=== PATIENT | male | born 1940 | race Caucasian/White ===

== ENCOUNTER 2016-06-15 22:13 | Observation (INO) | payer OTHER, MEDICARE ==
[~2016-06-15] VITALS: Ht 172.7 cm; Wt 91.6 kg
[~2016-06-15 22:13] MED LIST: ACCUPRIL20 MG PO; ADVAIR 250-501 EACH IH; ADVAIR 250/501 DISK IH; ADVAIR HFA120 INHALA IH; ALBUTEROL2.5 MG/3 M IH; ALLERCLEAR D-21 EACH PO; ALLERGY RELIEF10 M1 PO; ALLOPURINOL100 MG PO; APRESOLINE100 MG PO; ASPIR 8181 M1 PO; Advair HFA 115/21 IH; Apresolin PO; B COMPLEX-VITA1 EACH PO; BENADRYL50 MG PO; BYSTOLIC10 MG PO; BYSTOLIC20 MG PO; CALCIUM 600 +1 EAC3 PO; CALCIUM ACETAT667 MG PO; CALCIUM300 MG PO; CALCIUM600 MG PO; CARDURA1 M1 PO; CARDURA2 M1 PO; CARDURA4 MG PO; CATAPRES0.2 MG PO; CENTRUM SILV1 TABLE1 PO; CENTRUM SILVER1 EAC1 PO; CENTRUM SILVER1 EAC3; CENTRUM SILVER1 EAC3 PO; CIPRO250 MG PO; CLONIDINE HCL0.1 MG PO; CLONIDINE HCL0.2 MG PO; COREG25 M1 PO; COZAAR100 MG PO; CREON 61 CAPSULE PO; CREON DR 12,001 EAC1 PO; CREON DR 36,001 EACH PO; Cardura PO; Claritin,Alavart PO; Coreg PO; Cozaar PO; DIALYVITE 3,001 EACH PO; DIALYVITE TABL1 EACH PO; DILAUDID1 MG/ML IV; DOCUSATE SODIU100 MG PO; Dextrose 10% in Wate IV; Dextrose 50% in Wate IV; FISH OIL 1,0001 EAC7 PO; FISH OIL CONC1 EACH PO; FUROSEMIDE PO; FUROSEMIDE80 MG PO; Fish Oil PO; Flonase BOTH NARES; HUMULIN 70100 UNIT/1 SQ; HUMULIN N100 UNIT/1 SQ; HUMULIN N100 UNITS/ SC; HUMULIN N100 UNITS/ SQ; HUMULIN NP100 UNIT/1 SC; HUMULIN R100 UNITS/ SC; HYDRALAZINE HCL25 MG PO; HYDRALAZINE HCL50 MG PO; IRON325 M1 PO; JANTOVEN5 MG PO; LASIX20 MG PO; LASIX40 MG PO; LEVAQUIN500 MG PO; LIPO-FLAVONO1 TABLET PO; LO-DOSE ASPIRIN81 M2 PO; LONITEN2.5 MG PO; LORATADINE10 M2 PO; Lasix PO; Levaquin PO; Lovenox SC; MINOXIDIL2.5 MG PO; MONOPRIL20 MG PO; NASACORT AQ16.5 GM BOTH NARES; NASACORT AQ16.5 GM NS; NASACORT10.8 ML BOTH NARES; NOVOLIN N100 UNIT/1 SQ; NOVOLIN N100 UNITS/ SC; NOVOLOG 10100 UNITS/ SC; NOVOLOG 10100 UNITS/ SQ; NOVOLOG PE100 UNITS/ SC; NOVOLOG100 UNIT/2 SQ; OMEGA III EPA1000 MG PO; Ocean Nasal 0.65% NS; Omega III EPA + DHA PO; PROTONIX40 MG PO; PROVENTIL,2.5 MG/0.5 IH; PROVENTIL,2.5 MG/3 M IH; Protonix PO; RENVELA800 MG PO; SIMVASTATIN20 MG PO; SIMVASTATIN40 MG PO; SIMVASTATIN80 M1 PO; SPIRIVA1 INHALATI IH; SUPER B COMP1 TABLET PO; SYNTHROID100 MCG PO; SYNTHROID75 MCG PO; SYNTHROID88 MCG PO; TUMS ULTRA1000 MG PO; TUMS500 MG PO; TYLENOL ARTHRI650 MG PO; TYLENOL REGULA325 MG PO; Theragran PO; Tums,OsCal PO; VITAMIN B-121500 MCG PO; VITAMIN B-125000 MC1 PO; VITAMIN B12-FO1 EACH PO; VITAMIN C1000 MG PO; VITAMIN D-32000 UNIT PO; VITAMIN D1000 INTUN PO; VITAMIN D2000 UNIT PO; VITAMIN D31000 UNI1; VITAMIN D32000 UNI1 PO; VITAMIN D34000 UNIT PO; Vitamin D PO; XIFAXAN550 MG PO; ZITHROMAX Z-PA250 MG PO; ZOCOR40 MG PO; ZYLOPRIM100 MG PO; Zocor PO; Zofran IV; Zyloprim PO; [UNRECOGNIZED DRUG - OTHER] IV; predniSONE PO
[2016-06-15 22:55] LABS: HEMATOCRIT 29.5 % (38.0-50.0); MCH 32.9 PG (29.0-34.0); MCHC 32.5 G/DL (30.0-36.0); PLATELET COUNT 153 K/uL (156-360); RBC DIS.WIDTH-CV 13.7 % (11.8-14.6); RBC DIS.WIDTH-SD 50.9 % (39-53); RED BLOOD COUNT 2.92 M/uL (4.00-5.50); WHITE BLOOD COUNT 9.9 K/uL (4.1-10.2)
[2016-06-15 23:03] LABS: CHLORIDE 99 mEq/L (99-109); POTASSIUM 5.1 mEq/L (3.7-5.4); SODIUM 140 mEq/L (136-147)
[2016-06-15 23:05] LABS: CARBON DIOXIDE (BICARBONATE) 28.6 MEQ/L (20-31); GLUCOSE 99 mg/dL (70-99)
[2016-06-15 23:07] LABS: ANION GAP 16 MEQ/L (2-14)
[2016-06-15 23:09] LABS: GFR ESTIMATE (CALCULATED) 7 mL/min/
[2016-06-15 23:10] LABS: UREA NITROGEN (BUN) 74 mg/dL (9-23)
[2016-06-15 23:16] LABS: TROP-I INTERPRETATION NEGATIVE; TROPONIN-I 0.11 ng/mL (0.0-0.30)
[2016-06-16] MEDS ORDERED: HUMULIN N100 UNITS/ SC (00:48)
[2016-06-16 05:57] LABS: TROP-I INTERPRETATION NEGATIVE; TROPONIN-I 0.11 ng/mL (0.0-0.30)
[2016-06-16 07:40] VITALS: BP 146/78
[2016-06-16 08:27] LABS: CHLORIDE 98 mEq/L (99-109); POTASSIUM 5.8 mEq/L (3.7-5.4); SODIUM 137 mEq/L (136-147)
[2016-06-16 08:31] LABS: ANION GAP 17 MEQ/L (2-14)
[2016-06-16 08:33] LABS: GFR ESTIMATE (CALCULATED) 7 mL/min/
[2016-06-16 08:34] LABS: GLUCOSE 297 mg/dL (70-99); UREA NITROGEN (BUN) 86 mg/dL (9-23)
[2016-06-16 10:19] LABS: EOSINOPHIL (%) 0 % (0-5); HEMATOCRIT 26.2 % (38.0-50.0); IMMATURE GRANULOCYTE (%) 0.6 % (0.0-0.7); INSTRUMENT ABS NEUTROPHIL CT 5.9 K/uL; LYMPHOCYTE COUNT 0.3 K/uL (1.0-2.8); MCH 33.1 PG (29.0-34.0); MCHC 32.4 G/DL (30.0-36.0); MCV 101.9 FL (86-99); MEAN PLAT.VOLUME 10.8 uM^3 (9.0-12.4); MONOCYTE (%) 1.4 % (3-12); MONOCYTE COUNT 0.1 K/uL (0-0.8); NEUTROPHIL (%) 92.9 % (45-76); NEUTROPHIL COUNT 5.9 K/uL (1.8-6.4); PLATELET COUNT 128 K/uL (156-360); RBC DIS.WIDTH-CV 14.1 % (11.8-14.6); RBC DIS.WIDTH-SD 51.8 % (39-53); RED BLOOD COUNT 2.57 M/uL (4.00-5.50)
[2016-06-16 10:20] LABS: WHITE BLOOD COUNT 6.3 K/uL (4.1-10.2)
[2016-06-16 13:08] LABS: TROP-I INTERPRETATION NEGATIVE; TROPONIN-I 0.08 ng/mL (0.0-0.30)
[2016-06-16 15:49] VITALS: BP 121/59
[2016-06-16 15:49] LABS: ANION GAP 14 MEQ/L (2-14); CHLORIDE 99 MEQ/L (99-109); SAMPLE HEMOLYSIS CHECK 0; SAMPLE ICTERIC CHECK 0; SAMPLE LIPEMIA CHECK 0; SODIUM 140 MEQ/L (136-147)
[2016-06-16 15:53] LABS: POTASSIUM 3.9 MEQ/L (3.7-5.4)
[2016-06-16 15:55] LABS: GFR ESTIMATE (CALCULATED) 17 mL/min/; GLUCOSE 157 mg/dL (70-99); UREA NITROGEN (BUN) 35 mg/dL (9-23)
[2016-06-16 19:40] VITALS: BP 131/63
[2016-06-16 23:44] VITALS: BP 135/60
[2016-06-17 06:42] LABS: HEMATOCRIT 26.7 % (38.0-50.0); MCH 32.6 PG (29.0-34.0); MCHC 31.8 G/DL (30.0-36.0); MCV 102.3 FL (86-99); MEAN PLAT.VOLUME 10.2 uM^3 (9.0-12.4); PLATELET COUNT 125 K/uL (156-360); RBC DIS.WIDTH-CV 13.9 % (11.8-14.6); RBC DIS.WIDTH-SD 52.5 % (39-53); RED BLOOD COUNT 2.61 M/uL (4.00-5.50); WHITE BLOOD COUNT 6.9 K/uL (4.1-10.2)
[2016-06-17 07:04] LABS: ANION GAP 13 MEQ/L (2-14); CHLORIDE 97 MEQ/L (99-109); GFR ESTIMATE (CALCULATED) 12 mL/min/; GLUCOSE 42 mg/dL (70-99); POTASSIUM 4.3 MEQ/L (3.7-5.4); SAMPLE HEMOLYSIS CHECK 0; SAMPLE ICTERIC CHECK 0; SAMPLE LIPEMIA CHECK 0; SODIUM 139 MEQ/L (136-147); UREA NITROGEN (BUN) 43 mg/dL (9-23)
[2016-06-17 07:34] VITALS: BP 123/61
[2016-06-17 11:07] VITALS: BP 132/64
== END 2016-06-17 12:28 | disposition home or self-care (01) ==
LOC: EME → EDBD 22:13 → EME 22:13 → EDOF 06-16 02:10 → 5SOUTH 06-16 02:10 → EDOF 06-16 02:10 → 5SOUTH 06-16 02:11 → EDOF 06-16 02:11 → 5SOUTH 06-16 06:57
PROVIDERS: Emergency Medicine; Hospitalist; Internal Medicine; Internal Medicine Nephrology
PROC: 5A1D00Z (ICD-10-PCS; principal; 2016-06-16)
DX: E87.70 Fluid overload, unspecified (principal); I13.2 Hypertensive heart and chronic kidney disease with heart failure and with stage 5 chronic kidney disease, or end stage renal disease; N18.6 End stage renal disease; I50.9 Heart failure, unspecified; J44.9 Chronic obstructive pulmonary disease, unspecified; J96.11 Chronic respiratory failure with hypoxia; E87.5 Hyperkalemia; E83.39 Other disorders of phosphorus metabolism; E11.9 Type 2 diabetes mellitus without complications; G47.33 Obstructive sleep apnea (adult) (pediatric); E78.5 Hyperlipidemia, unspecified; E03.9 Hypothyroidism, unspecified; Z99.81 Dependence on supplemental oxygen; Z99.2 Dependence on renal dialysis; Z79.4 Long term (current) use of insulin; Z85.828 Personal history of other malignant neoplasm of skin; Z87.891 Personal history of nicotine dependence
CPT/HCPCS: 71010; 71020; 71250; 80048; 80048 91; 80069; 81003; 82803; 82948; 83605; 83880; 84484; 85025; 85027; 87040; 87070; 87205; 87449; 93005; 94640; 94640 76; 94799; 99202; 99281; 99284; G0257; G0378; J1100; J1644; J1815; J1940; J1956; J2270; J2405; S0030

== ENCOUNTER 2016-06-25 19:07 | Emergency (ER) | payer OTHER, MEDICARE ==
[~2016-06-25] VITALS: Ht 172.7 cm; Wt 85.0 kg
[2016-06-25 19:30] LABS: HEMATOCRIT 27.7 % (38.0-50.0); MCH 32.9 PG (29.0-34.0); MCHC 32.9 G/DL (30.0-36.0); MEAN PLAT.VOLUME 9.3 uM^3 (9.0-12.4); PLATELET COUNT 125 K/uL (156-360); RBC DIS.WIDTH-CV 14.3 % (11.8-14.6); RBC DIS.WIDTH-SD 51.8 % (39-53); RED BLOOD COUNT 2.77 M/uL (4.00-5.50); WHITE BLOOD COUNT 5.7 K/uL (4.1-10.2)
[2016-06-25 19:50] LABS: CHLORIDE 96 mEq/L (99-109); POTASSIUM 3.2 mEq/L (3.7-5.4); SODIUM 138 mEq/L (136-147)
[2016-06-25 19:51] LABS: GLUCOSE 189 mg/dL (70-99)
[2016-06-25 19:53] LABS: ANION GAP 15 MEQ/L (2-14)
[2016-06-25 19:55] LABS: GFR ESTIMATE (CALCULATED) 14 mL/min/
[2016-06-25 19:56] LABS: TROP-I INTERPRETATION NEGATIVE; TROPONIN-I 0.15 ng/mL (0.0-0.30); UREA NITROGEN (BUN) 19 mg/dL (9-23)
[2016-06-25 22:21] VITALS: BP 106/51
== END 2016-06-25 22:22 | disposition home or self-care (01) ==
LOC: EME → EDBD 19:07 → EME 19:07
DX: E86.0 Dehydration (principal); I12.9 Hypertensive chronic kidney disease with stage 1 through stage 4 chronic kidney disease, or unspecified chronic kidney disease; N18.9 Chronic kidney disease, unspecified; Z99.81 Dependence on supplemental oxygen; Z95.810 Presence of automatic (implantable) cardiac defibrillator; Z95.0 Presence of cardiac pacemaker; J45.909 Unspecified asthma, uncomplicated; J44.9 Chronic obstructive pulmonary disease, unspecified; I50.9 Heart failure, unspecified; E11.9 Type 2 diabetes mellitus without complications; Z79.4 Long term (current) use of insulin; Z79.82 Long term (current) use of aspirin; Z80.0 Family history of malignant neoplasm of digestive organs; Z88.8 Allergy status to other drugs, medicaments and biological substances; Z91.048 Other nonmedicinal substance allergy status; Z87.891 Personal history of nicotine dependence
CPT/HCPCS: 71020; 80048; 83605; 84484; 85027; 87040; 93005; 94640; 99281; 99285; J7040

== ENCOUNTER → 2016-06-26 | Outpatient (CLI) | payer OTHER, MEDICARE ==
[~2016-06-26] MED LIST changes: +LEVO-T88 MCG PO
[2016-06-26 09:49] LABS: TYPE OF FLUID PLEURAL
[2016-06-26 10:30] LABS: BODY FLUID EOSINOPHILS 1 % (0-25); MONO RAW COUNT 91; MONONUCLEAR WBC'S 91 %; POLY RAW COUNT 8; POLYNUCLEAR WBC'S 8 % (0-25)
[2016-06-26 10:47] LABS: BODY FLUID LDH 107 IU/L; BODY FLUID PROTEIN 4.1 G/DL; BODY FLUID RBC'S < 1000 /MM^3 (0-100); BODY FLUID WBC'S 204 /MM^3 (0-500)
== END | disposition home or self-care (01) ==
LOC: RAD 08:31 → EDSTATUS 09:00 → RAD 06-27 09:00
PROVIDERS: Radiology Diagnostic Radiology
PROC: 0W993ZZ Drainage of Right Pleural Cavity, Percutaneous Approach (ICD-10-PCS; principal; 2016-06-26)
DX: J90 Pleural effusion, not elsewhere classified (principal)
CPT/HCPCS: 82945; 83615 91; 84157; 87070; 87116; 87205; 87206; 88108; 88305; 89051; J2405

== ENCOUNTER 2016-06-27 17:14 | Inpatient (IN) | payer OTHER, MEDICARE ==
[~2016-06-27] VITALS: Ht 172.7 cm; Wt 85.5 kg
[~2016-06-27 17:14] MED LIST changes: -LEVO-T88 MCG PO
[2016-06-27 17:39] LABS: CHLORIDE 97 mEq/L (99-109); MCH 33.6 PG (29.0-34.0); MCHC 33.3 G/DL (30.0-36.0); MCV 100.7 FL (86-99); MEAN PLAT.VOLUME 10.5 uM^3 (9.0-12.4); PLATELET COUNT 113 K/uL (156-360); RBC DIS.WIDTH-CV 14.4 % (11.8-14.6); RED BLOOD COUNT 2.68 M/uL (4.00-5.50); WHITE BLOOD COUNT 9.6 K/uL (4.1-10.2)
[2016-06-27 17:40] LABS: POTASSIUM 3.7 mEq/L (3.7-5.4); SODIUM 138 mEq/L (136-147)
[2016-06-27 17:41] LABS: GLUCOSE 165 mg/dL (70-99); INTER. NORMALIZED RATIO 1.1; PROTHROMBIN TIME 10.7 (9.2-11.2)
[2016-06-27 17:43] LABS: ANION GAP 17 MEQ/L (2-14)
[2016-06-27 17:45] LABS: GFR ESTIMATE (CALCULATED) 19 mL/min/
[2016-06-27 17:46] LABS: UREA NITROGEN (BUN) 13 mg/dL (9-23)
[2016-06-27 17:52] LABS: TROP-I INTERPRETATION NEGATIVE; TROPONIN-I 0.17 ng/mL (0.0-0.30)
[2016-06-27] MEDS ORDERED: LEVO-T88 MCG PO (19:52)
[2016-06-28] VITALS (7 sets, daily range): BP systolic 113–169; BP diastolic 54–79
[2016-06-28 07:05] LABS: HEMATOCRIT 25.9 % (38.0-50.0); MCH 32.8 PG (29.0-34.0); MCV 102.4 FL (86-99); MEAN PLAT.VOLUME 10.7 uM^3 (9.0-12.4); PLATELET COUNT 113 K/uL (156-360); RBC DIS.WIDTH-CV 14.6 % (11.8-14.6); RED BLOOD COUNT 2.53 M/uL (4.00-5.50); WHITE BLOOD COUNT 11.6 K/uL (4.1-10.2)
[2016-06-28 07:11] LABS: ANION GAP 12 MEQ/L (2-14); CHLORIDE 96 MEQ/L (99-109); GFR ESTIMATE (CALCULATED) 12 mL/min/; GLUCOSE 198 mg/dL (70-99); POTASSIUM 4.4 MEQ/L (3.7-5.4); SAMPLE HEMOLYSIS CHECK 0; SAMPLE ICTERIC CHECK 0; SAMPLE LIPEMIA CHECK 0; SODIUM 137 MEQ/L (136-147)
[2016-06-28 07:14] LABS: UREA NITROGEN (BUN) 24 mg/dL (9-23)
[2016-06-28 10:37] LABS: INFLUENZA A VIRAL ANTIGEN NEGATIVE; INFLUENZA B VIRAL ANTIGEN POSITIVE
[2016-06-28 16:26] LABS: POINT-OF-CARE METER ID UU14162508
[2016-06-29 03:14] VITALS: BP 104/55
[2016-06-29 06:41] LABS: POINT-OF-CARE METER ID UU14162508
[2016-06-29 07:09] LABS: HEMATOCRIT 25.1 % (38.0-50.0); MCH 32.7 PG (29.0-34.0); MCHC 32.3 G/DL (30.0-36.0); MCV 101.2 FL (86-99); MEAN PLAT.VOLUME 11.1 uM^3 (9.0-12.4); PLATELET COUNT 138 K/uL (156-360); RBC DIS.WIDTH-SD 52.2 % (39-53); RED BLOOD COUNT 2.48 M/uL (4.00-5.50); WHITE BLOOD COUNT 14.5 K/uL (4.1-10.2)
[2016-06-29 08:53] LABS: ANION GAP 14 MEQ/L (2-14); CHLORIDE 92 MEQ/L (99-109); GFR ESTIMATE (CALCULATED) 9 mL/min/; GLUCOSE 186 mg/dL (70-99); POTASSIUM 4.5 MEQ/L (3.7-5.4); SAMPLE HEMOLYSIS CHECK 0; SAMPLE ICTERIC CHECK 0; SAMPLE LIPEMIA CHECK 0; SODIUM 132 MEQ/L (136-147)
[2016-06-29 08:56] LABS: UREA NITROGEN (BUN) 49 mg/dL (9-23)
[2016-06-29 19:50] VITALS: BP 140/64
[2016-06-29 23:13] VITALS: BP 115/57
[2016-06-30 03:13] VITALS: BP 113/56
[2016-06-30 07:20] VITALS: BP 105/54
[2016-06-30 08:21] LABS: HEMATOCRIT 24.9 % (38.0-50.0); MCH 32.2 PG (29.0-34.0); MCHC 31.7 G/DL (30.0-36.0); MCV 101.6 FL (86-99); MEAN PLAT.VOLUME 10.9 uM^3 (9.0-12.4); PLATELET COUNT 130 K/uL (156-360); RBC DIS.WIDTH-CV 14.3 % (11.8-14.6); RED BLOOD COUNT 2.45 M/uL (4.00-5.50); WHITE BLOOD COUNT 12.8 K/uL (4.1-10.2)
[2016-06-30 08:52] LABS: ANION GAP 11 MEQ/L (2-14); CHLORIDE 93 MEQ/L (99-109); GFR ESTIMATE (CALCULATED) 13 mL/min/; GLUCOSE 270 mg/dL (70-99); POTASSIUM 4.2 MEQ/L (3.7-5.4); SAMPLE HEMOLYSIS CHECK 0; SAMPLE ICTERIC CHECK 0; SAMPLE LIPEMIA CHECK 0; SODIUM 129 MEQ/L (136-147); UREA NITROGEN (BUN) 36 mg/dL (9-23)
[2016-06-30 11:50] VITALS: BP 107/53
[2016-06-30 16:00] VITALS: BP 118/58
[2016-06-30 19:55] VITALS: BP 103/55
[2016-06-30 23:20] VITALS: BP 98/55
[2016-07-01 03:44] VITALS: BP 104/50
[2016-07-01 06:10] LABS: HEMATOCRIT 23.8 % (38.0-50.0); MCH 33.3 PG (29.0-34.0); MCHC 33.2 G/DL (30.0-36.0); MCV 100.4 FL (86-99); NRBC (%) 0.2 /100 WBC (0-0); PLATELET COUNT 134 K/uL (156-360); RBC DIS.WIDTH-CV 14.1 % (11.8-14.6); RBC DIS.WIDTH-SD 51.3 % (39-53); RED BLOOD COUNT 2.37 M/uL (4.00-5.50); WHITE BLOOD COUNT 14.5 K/uL (4.1-10.2)
[2016-07-01 06:29] LABS: POINT-OF-CARE USER ID 609231305
[2016-07-01 06:36] LABS: ANION GAP 12 MEQ/L (2-14); CHLORIDE 94 MEQ/L (99-109); GFR ESTIMATE (CALCULATED) 9 mL/min/; GLUCOSE 174 mg/dL (70-99); POTASSIUM 4.4 MEQ/L (3.7-5.4); SAMPLE HEMOLYSIS CHECK 0; SAMPLE ICTERIC CHECK 0; SAMPLE LIPEMIA CHECK 0; SODIUM 131 MEQ/L (136-147); UREA NITROGEN (BUN) 54 mg/dL (9-23)
[2016-07-01 07:35] VITALS: BP 103/59
[2016-07-01 12:21] VITALS: BP 112/56
[2016-07-01 15:53] VITALS: BP 119/60
[2016-07-01 18:42] VITALS: BP 105/53
[2016-07-01 22:43] LABS: POINT-OF-CARE METER ID UU14162508
[2016-07-01 23:30] VITALS: BP 103/53
[2016-07-02 04:01] VITALS: BP 105/49
[2016-07-02 07:10] VITALS: BP 109/52
[2016-07-02 07:10] LABS: HEMATOCRIT 24.7 % (38.0-50.0); MCH 32.4 PG (29.0-34.0); MCHC 32.4 G/DL (30.0-36.0); MEAN PLAT.VOLUME 11.2 uM^3 (9.0-12.4); NRBC (%) 0.5 /100 WBC (0-0); PLATELET COUNT 162 K/uL (156-360); RBC DIS.WIDTH-CV 13.8 % (11.8-14.6); RBC DIS.WIDTH-SD 50.5 % (39-53); RED BLOOD COUNT 2.47 M/uL (4.00-5.50); WHITE BLOOD COUNT 15.3 K/uL (4.1-10.2)
[2016-07-02 07:34] LABS: ANION GAP 14 MEQ/L (2-14); CHLORIDE 92 MEQ/L (99-109); GFR ESTIMATE (CALCULATED) 7 mL/min/; GLUCOSE 139 mg/dL (70-99); POTASSIUM 4.7 MEQ/L (3.7-5.4); SAMPLE HEMOLYSIS CHECK 0; SAMPLE ICTERIC CHECK 0; SAMPLE LIPEMIA CHECK 0; SODIUM 129 MEQ/L (136-147); UREA NITROGEN (BUN) 74 mg/dL (9-23)
[2016-07-02] MEDS ORDERED: OSELTAMIVIR PHO30 MG PO (08:24)
[2016-07-02] MEDS ORDERED: PREDNISONE20 MG PO (08:24)
[2016-07-02] MEDS ORDERED: LEVOFLOXACIN500 MG PO (08:24)
[2016-07-02 13:19] LABS: POINT-OF-CARE METER ID UU14162508
== END 2016-07-02 14:50 | disposition home or self-care (01) | DRG 190 ==
LOC: EME 17:14 → EDOF 22:09 → 2EAST 22:24 → EDOF 22:24 → 2EAST 06-28 00:34
PROVIDERS: Emergency Medicine; Hospitalist; Internal Medicine; Nurse Practitioner Family; Student in an Organized Health Care Education/Training Program
PROC: 5A1D60Z (ICD-10-PCS; principal; 2016-06-29)
DX: J44.1 Chronic obstructive pulmonary disease with (acute) exacerbation (principal); N18.6 End stage renal disease; J90 Pleural effusion, not elsewhere classified; Z99.2 Dependence on renal dialysis; Z85.07 Personal history of malignant neoplasm of pancreas; Z99.81 Dependence on supplemental oxygen; K86.1 Other chronic pancreatitis; I13.2 Hypertensive heart and chronic kidney disease with heart failure and with stage 5 chronic kidney disease, or end stage renal disease; I50.32 Chronic diastolic (congestive) heart failure; E11.65 Type 2 diabetes mellitus with hyperglycemia; E11.22 Type 2 diabetes mellitus with diabetic chronic kidney disease; Z79.82 Long term (current) use of aspirin; Z79.4 Long term (current) use of insulin; Z87.891 Personal history of nicotine dependence; J10.1 Influenza due to other identified influenza virus with other respiratory manifestations; I42.9 Cardiomyopathy, unspecified; D63.1 Anemia in chronic kidney disease; Z95.810 Presence of automatic (implantable) cardiac defibrillator; E03.9 Hypothyroidism, unspecified; J96.21 Acute and chronic respiratory failure with hypoxia; E78.5 Hyperlipidemia, unspecified
CPT/HCPCS: 71010; 71020; 80048; 81003; 82945; 82948; 83605; 83615 91; 83880; 84157; 84484; 85027; 85610; 87040; 87070; 87116; 87205; 87206; 87502; 88108; 88305; 89051; 93005; 94640; 94640 76; 94760; 94799; 99281; 99285; J0696; J0881; J1644; J1815; J2405; J2930; J7040; J7050; J7512

== ENCOUNTER 2016-07-13 12:17 | Inpatient (IN) | payer OTHER, MEDICARE ==
[~2016-07-13] VITALS: Ht 172.7 cm; Wt 94.8 kg
[~2016-07-13 12:17] MED LIST changes: +LEVO-T88 MCG PO; +LEVOFLOXACIN500 MG PO; +OSELTAMIVIR PHO30 MG PO; +PREDNISONE20 MG PO
[2016-07-13 14:36] LABS: EOSINOPHIL (%) 0.7 % (0-5); EOSINOPHIL COUNT 0.1 K/uL (0-0.3); HEMATOCRIT 25.9 % (38.0-50.0); IMMATURE GRANULOCYTE (%) 0.6 % (0.0-0.7); IMMATURE GRANULOCYTE COUNT 0.1 K/uL; INSTRUMENT ABS NEUTROPHIL CT 9.5 K/uL; LYMPHOCYTE COUNT 0.4 K/uL (1.0-2.8); MCH 32.7 PG (29.0-34.0); MEAN PLAT.VOLUME 10.3 uM^3 (9.0-12.4); MONOCYTE (%) 6.8 % (3-12); MONOCYTE COUNT 0.7 K/uL (0-0.8); NEUTROPHIL (%) 87.9 % (45-76); NEUTROPHIL COUNT 9.5 K/uL (1.8-6.4); PLATELET COUNT 115 K/uL (156-360); RBC DIS.WIDTH-CV 15.7 % (11.8-14.6); RBC DIS.WIDTH-SD 58.9 % (39-53); RED BLOOD COUNT 2.54 M/uL (4.00-5.50); WHITE BLOOD COUNT 10.8 K/uL (4.1-10.2)
[2016-07-13 14:44] LABS: CHLORIDE 100 mEq/L (99-109); INTER. NORMALIZED RATIO 1.1; POTASSIUM 3.9 mEq/L (3.7-5.4); PROTHROMBIN TIME 11.6 (9.2-11.2); SODIUM 136 mEq/L (136-147)
[2016-07-13 14:45] LABS: GLUCOSE 294 mg/dL (70-99)
[2016-07-13 14:47] LABS: ANION GAP 13 MEQ/L (2-14)
[2016-07-13 14:49] LABS: GFR ESTIMATE (CALCULATED) 7 mL/min/
[2016-07-13 14:50] LABS: UREA NITROGEN (BUN) 59 mg/dL (9-23)
[2016-07-13 23:00] VITALS: BP 145/68
[2016-07-13 23:35] VITALS: BP 145/68
[2016-07-14 00:44] LABS: INFLUENZA A VIRAL ANTIGEN NEGATIVE; INFLUENZA B VIRAL ANTIGEN POSITIVE
[2016-07-14 03:16] VITALS: BP 140/65
[2016-07-14 05:17] LABS: EOSINOPHIL (%) 0.7 % (0-5); EOSINOPHIL COUNT 0.1 K/uL (0-0.3); HEMATOCRIT 24.8 % (38.0-50.0); IMMATURE GRANULOCYTE (%) 0.6 % (0.0-0.7); IMMATURE GRANULOCYTE COUNT 0.1 K/uL; INSTRUMENT ABS NEUTROPHIL CT 9.3 K/uL; LYMPHOCYTE COUNT 0.5 K/uL (1.0-2.8); MCH 32.1 PG (29.0-34.0); MCV 103.3 FL (86-99); MEAN PLAT.VOLUME 10.8 uM^3 (9.0-12.4); MONOCYTE (%) 8.4 % (3-12); MONOCYTE COUNT 0.9 K/uL (0-0.8); NEUTROPHIL (%) 85.6 % (45-76); NEUTROPHIL COUNT 9.3 K/uL (1.8-6.4); PLATELET COUNT 121 K/uL (156-360); RBC DIS.WIDTH-CV 16.1 % (11.8-14.6); RBC DIS.WIDTH-SD 61.8 % (39-53); WHITE BLOOD COUNT 10.8 K/uL (4.1-10.2)
[2016-07-14 05:37] LABS: ANION GAP 13 MEQ/L (2-14); CHLORIDE 98 MEQ/L (99-109); GFR ESTIMATE (CALCULATED) 14 mL/min/; POTASSIUM 3.8 MEQ/L (3.7-5.4); SAMPLE HEMOLYSIS CHECK 0; SAMPLE ICTERIC CHECK 0; SAMPLE LIPEMIA CHECK 0; SODIUM 140 MEQ/L (136-147)
[2016-07-14 05:45] LABS: GLUCOSE 141 mg/dL (70-99); UREA NITROGEN (BUN) 25 mg/dL (9-23)
[2016-07-14 09:00] VITALS: BP 119/61
[2016-07-14 13:20] LABS: POINT-OF-CARE METER ID UU14188577
[2016-07-14 16:51] LABS: POINT-OF-CARE METER ID UU14188577
[2016-07-14] MEDS ORDERED: ATIVAN0.5 MG PO (17:28)
[2016-07-14] MEDS ORDERED: HUMULIN N100 UNITS/ SC (17:38)
[2016-07-14 17:49] VITALS: BP 118/56
[2016-07-14 17:55] LABS: METH RESISTANT S AUREUS PCR NEGATIVE (NEGATIVE)
[2016-07-14 17:56] LABS: PROBE CHECK PASS; SPECIMEN PROCESSING CONTROL PASS
[2016-07-14 19:38] VITALS: BP 132/63
[2016-07-14 23:40] VITALS: BP 97/59
[2016-07-15 04:01] VITALS: BP 92/54
[2016-07-15 05:57] LABS: HEMATOCRIT 25.4 % (38.0-50.0); MCH 32.4 PG (29.0-34.0); MCHC 30.7 G/DL (30.0-36.0); MCV 105.4 FL (86-99); MEAN PLAT.VOLUME 10.6 uM^3 (9.0-12.4); PLATELET COUNT 108 K/uL (156-360); RBC DIS.WIDTH-SD 62.1 % (39-53); RED BLOOD COUNT 2.41 M/uL (4.00-5.50); WHITE BLOOD COUNT 9.4 K/uL (4.1-10.2)
[2016-07-15 05:59] LABS: ANION GAP 13 MEQ/L (2-14); CHLORIDE 99 MEQ/L (99-109); POTASSIUM 4.3 MEQ/L (3.7-5.4); SAMPLE HEMOLYSIS CHECK 0; SAMPLE ICTERIC CHECK 0; SAMPLE LIPEMIA CHECK 0; SODIUM 140 MEQ/L (136-147)
[2016-07-15 06:01] LABS: GFR ESTIMATE (CALCULATED) 9 mL/min/; GLUCOSE 79 mg/dL (70-99); UREA NITROGEN (BUN) 47 mg/dL (9-23); VANCOMYCIN, TROUGH 14.4 MCG/ML (10-20)
[2016-07-15 08:01] VITALS: BP 105/57
[2016-07-15 12:06] LABS: POINT-OF-CARE METER ID UU14188577
[2016-07-15 17:06] VITALS: BP 88/53
[2016-07-15 20:30] VITALS: BP 92/52
[2016-07-16 01:01] VITALS: BP 94/50
[2016-07-16 03:55] VITALS: BP 110/74
[2016-07-16 05:08] LABS: EOSINOPHIL (%) 0 % (0-5); HEMATOCRIT 23.5 % (38.0-50.0); IMMATURE GRANULOCYTE (%) 0.5 % (0.0-0.7); INSTRUMENT ABS NEUTROPHIL CT 7.9 K/uL; LYMPHOCYTE COUNT 0.3 K/uL (1.0-2.8); MCH 32.3 PG (29.0-34.0); MCHC 31.5 G/DL (30.0-36.0); MCV 102.6 FL (86-99); MEAN PLAT.VOLUME 11.2 uM^3 (9.0-12.4); MONOCYTE (%) 2.5 % (3-12); MONOCYTE COUNT 0.2 K/uL (0-0.8); NEUTROPHIL COUNT 7.9 K/uL (1.8-6.4); PLATELET COUNT 110 K/uL (156-360); RBC DIS.WIDTH-CV 16.2 % (11.8-14.6); RED BLOOD COUNT 2.29 M/uL (4.00-5.50); WHITE BLOOD COUNT 8.4 K/uL (4.1-10.2)
[2016-07-16 05:20] LABS: CHLORIDE 98 mEq/L (99-109); POTASSIUM 4.8 mEq/L (3.7-5.4); SODIUM 136 mEq/L (136-147)
[2016-07-16 05:23] LABS: ANION GAP 17 MEQ/L (2-14)
[2016-07-16 05:26] LABS: GFR ESTIMATE (CALCULATED) 7 mL/min/
[2016-07-16 05:27] LABS: UREA NITROGEN (BUN) 68 mg/dL (9-23)
[2016-07-16 06:01] LABS: GLUCOSE 323 mg/dL (70-99)
[2016-07-16 07:55] VITALS: BP 91/46
[2016-07-16 10:55] LABS: IRON 57 MCG/DL (35-150)
[2016-07-16 10:58] LABS: POINT-OF-CARE METER ID UU14188577
[2016-07-16 13:18] LABS: POINT-OF-CARE METER ID UU14149397
[2016-07-16 13:25] VITALS: BP 91/54
[2016-07-16 14:00] LABS: ANION GAP 14 MEQ/L (2-14); CHLORIDE 94 MEQ/L (99-109); GLUCOSE 265 mg/dL (70-99); SAMPLE HEMOLYSIS CHECK 0; SAMPLE ICTERIC CHECK 0; SAMPLE LIPEMIA CHECK 0; SODIUM 137 MEQ/L (136-147); UREA NITROGEN (BUN) 35 mg/dL (9-23)
[2016-07-16 14:01] LABS: GFR ESTIMATE (CALCULATED) 14 mL/min/
[2016-07-16 14:05] LABS: EOSINOPHIL (%) 0 % (0-5); HEMATOCRIT 29.7 % (38.0-50.0); IMMATURE GRANULOCYTE (%) 0.4 % (0.0-0.7); INSTRUMENT ABS NEUTROPHIL CT 9.8 K/uL; LYMPHOCYTE COUNT 0.3 K/uL (1.0-2.8); MCH 31.4 PG (29.0-34.0); MONOCYTE (%) 3.6 % (3-12); MONOCYTE COUNT 0.4 K/uL (0-0.8); NEUTROPHIL (%) 93.2 % (45-76); NEUTROPHIL COUNT 9.8 K/uL (1.8-6.4); PLATELET COUNT 106 K/uL (156-360); RBC DIS.WIDTH-CV 16.5 % (11.8-14.6); RBC DIS.WIDTH-SD 59.4 % (39-53); WHITE BLOOD COUNT 10.5 K/uL (4.1-10.2)
[2016-07-16 14:06] LABS: RED BLOOD COUNT 3.03 M/uL (4.00-5.50)
[2016-07-16 15:03] LABS: VANCOMYCIN, TROUGH 17.1 MCG/ML (10-20)
[2016-07-16 15:13] VITALS: BP 100/56
[2016-07-16 17:03] LABS: POINT-OF-CARE METER ID UU14188577
[2016-07-16 20:39] VITALS: BP 98/44
[2016-07-17 00:17] VITALS: BP 105/50
[2016-07-17 04:10] VITALS: BP 102/52
[2016-07-17 06:03] LABS: EOSINOPHIL (%) 0 % (0-5); HEMATOCRIT 26.2 % (38.0-50.0); IMMATURE GRANULOCYTE (%) 0.5 % (0.0-0.7); INSTRUMENT ABS NEUTROPHIL CT 8.2 K/uL; LYMPHOCYTE COUNT 0.2 K/uL (1.0-2.8); MCH 31.6 PG (29.0-34.0); MCHC 31.7 G/DL (30.0-36.0); MCV 99.6 FL (86-99); MEAN PLAT.VOLUME 10.9 uM^3 (9.0-12.4); MONOCYTE (%) 3.5 % (3-12); MONOCYTE COUNT 0.3 K/uL (0-0.8); NEUTROPHIL (%) 93.4 % (45-76); NEUTROPHIL COUNT 8.2 K/uL (1.8-6.4); PLATELET COUNT 94 K/uL (156-360); RBC DIS.WIDTH-CV 17.2 % (11.8-14.6); RED BLOOD COUNT 2.63 M/uL (4.00-5.50); WHITE BLOOD COUNT 8.8 K/uL (4.1-10.2)
[2016-07-17 06:20] LABS: ANION GAP 14 MEQ/L (2-14); CHLORIDE 97 MEQ/L (99-109); POTASSIUM 4.5 MEQ/L (3.7-5.4); SAMPLE HEMOLYSIS CHECK 0; SAMPLE ICTERIC CHECK 0; SAMPLE LIPEMIA CHECK 0; SODIUM 138 MEQ/L (136-147); UREA NITROGEN (BUN) 52 mg/dL (9-23)
[2016-07-17 06:22] LABS: GFR ESTIMATE (CALCULATED) 10 mL/min/; GLUCOSE 125 mg/dL (70-99); VANCOMYCIN, TROUGH 16.3 MCG/ML (10-20)
[2016-07-17 07:44] VITALS: BP 94/55
[2016-07-17 11:45] VITALS: BP 97/53
[2016-07-17 15:55] VITALS: BP 102/53
[2016-07-17 16:32] LABS: POINT-OF-CARE METER ID UU14188577
[2016-07-17 22:54] LABS: POINT-OF-CARE METER ID UU14188577
[2016-07-17 23:33] VITALS: BP 110/62
[2016-07-18 04:59] VITALS: BP 108/58
[2016-07-18 05:30] LABS: EOSINOPHIL (%) 0 % (0-5); IMMATURE GRANULOCYTE (%) 0.5 % (0.0-0.7); IMMATURE GRANULOCYTE COUNT 0.1 K/uL; INSTRUMENT ABS NEUTROPHIL CT 9.7 K/uL; LYMPHOCYTE COUNT 0.3 K/uL (1.0-2.8); MCH 30.8 PG (29.0-34.0); MCHC 30.7 G/DL (30.0-36.0); MCV 100.4 FL (86-99); MONOCYTE (%) 3.2 % (3-12); MONOCYTE COUNT 0.3 K/uL (0-0.8); NEUTROPHIL (%) 93.7 % (45-76); NEUTROPHIL COUNT 9.7 K/uL (1.8-6.4); PLATELET COUNT 110 K/uL (156-360); RBC DIS.WIDTH-CV 16.8 % (11.8-14.6); RBC DIS.WIDTH-SD 62.4 % (39-53); RED BLOOD COUNT 2.79 M/uL (4.00-5.50); WHITE BLOOD COUNT 10.4 K/uL (4.1-10.2)
[2016-07-18 06:05] LABS: ANION GAP 15 MEQ/L (2-14); CHLORIDE 98 MEQ/L (99-109); POTASSIUM 4.6 MEQ/L (3.7-5.4); SAMPLE HEMOLYSIS CHECK 0; SAMPLE ICTERIC CHECK 0; SAMPLE LIPEMIA CHECK 0; SODIUM 137 MEQ/L (136-147); UREA NITROGEN (BUN) 71 mg/dL (9-23)
[2016-07-18 06:06] LABS: GLUCOSE 63 mg/dL (70-99)
[2016-07-18 06:07] LABS: GFR ESTIMATE (CALCULATED) 8 mL/min/; VANCOMYCIN, TROUGH 13.9 MCG/ML (10-20)
[2016-07-18 06:47] LABS: ALKALINE PHOSPHATASE 57 IU/L (3-129); DIRECT BILIRUBIN 0.1 mg/dL (0.0-0.3); MAGNESIUM 1.8 mg/dl (1.3-2.7); TOTAL BILIRUBIN 0.4 MG/DL (0.0-1.0)
[2016-07-18 08:36] VITALS: BP 131/95
[2016-07-18 15:30] VITALS: BP 146/65
[2016-07-18 20:13] VITALS: BP 138/68
[2016-07-18 23:52] VITALS: BP 131/78
[2016-07-19 05:36] LABS: EOSINOPHIL (%) 0.1 % (0-5); HEMATOCRIT 28.8 % (38.0-50.0); IMMATURE GRANULOCYTE COUNT 0.1 K/uL; INSTRUMENT ABS NEUTROPHIL CT 6.7 K/uL; LYMPHOCYTE COUNT 0.5 K/uL (1.0-2.8); MCHC 30.6 G/DL (30.0-36.0); MCV 101.4 FL (86-99); MEAN PLAT.VOLUME 10.6 uM^3 (9.0-12.4); MONOCYTE (%) 5.1 % (3-12); MONOCYTE COUNT 0.4 K/uL (0-0.8); NEUTROPHIL (%) 87.4 % (45-76); NEUTROPHIL COUNT 6.7 K/uL (1.8-6.4); PLATELET COUNT 111 K/uL (156-360); RBC DIS.WIDTH-CV 16.1 % (11.8-14.6); RBC DIS.WIDTH-SD 60.4 % (39-53); RED BLOOD COUNT 2.84 M/uL (4.00-5.50); WHITE BLOOD COUNT 7.6 K/uL (4.1-10.2)
[2016-07-19 06:19] LABS: ANION GAP 14 MEQ/L (2-14); CHLORIDE 97 MEQ/L (99-109); GFR ESTIMATE (CALCULATED) 13 mL/min/; GLUCOSE 149 mg/dL (70-99); POTASSIUM 4.4 MEQ/L (3.7-5.4); SAMPLE HEMOLYSIS CHECK 0; SAMPLE ICTERIC CHECK 0; SAMPLE LIPEMIA CHECK 0; SODIUM 138 MEQ/L (136-147); UREA NITROGEN (BUN) 41 mg/dL (9-23)
[2016-07-19 08:18] VITALS: BP 133/93
[2016-07-19 12:16] LABS: POINT-OF-CARE METER ID UU14188577
[2016-07-19] MEDS ORDERED: PREDNISONE20 MG PO (13:21)
[2016-07-19] MEDS ORDERED: CALCIUM ACETAT667 MG PO (13:22)
[2016-07-19] MEDS ORDERED: BYSTOLIC10 MG PO (13:23)
[2016-07-19] MEDS ORDERED: ARANESP100 MCG/0. IV (13:23)
[2016-07-19] MEDS ORDERED: CLEOCIN150 MG PO (13:24)
[2016-07-19] MEDS ORDERED: AUGMENTIN500 MG PO (13:25)
[2016-07-19] MEDS ORDERED: FLORASTOR250 MG PO (13:26)
[2016-07-19 16:38] VITALS: BP 125/63
[2016-07-20 00:04] VITALS: BP 125/94
[2016-07-20 06:58] LABS: POINT-OF-CARE METER ID UU14188577
[2016-07-20 08:09] VITALS: BP 146/67
[2016-07-20 11:43] LABS: POINT-OF-CARE METER ID UU14188577
[2016-07-20 13:13] LABS: EOSINOPHIL (%) 1.1 % (0-5); EOSINOPHIL COUNT 0.1 K/uL (0-0.3); HEMATOCRIT 28.6 % (38.0-50.0); IMMATURE GRANULOCYTE (%) 1.2 % (0.0-0.7); IMMATURE GRANULOCYTE COUNT 0.1 K/uL; INSTRUMENT ABS NEUTROPHIL CT 8.4 K/uL; LYMPHOCYTE COUNT 0.3 K/uL (1.0-2.8); MCH 32.4 PG (29.0-34.0); MCHC 31.8 G/DL (30.0-36.0); MCV 101.8 FL (86-99); MEAN PLAT.VOLUME 11.3 uM^3 (9.0-12.4); MONOCYTE (%) 3.6 % (3-12); MONOCYTE COUNT 0.3 K/uL (0-0.8); NEUTROPHIL COUNT 8.4 K/uL (1.8-6.4); PLATELET COUNT 120 K/uL (156-360); RBC DIS.WIDTH-CV 16.1 % (11.8-14.6); RBC DIS.WIDTH-SD 59.4 % (39-53); RED BLOOD COUNT 2.81 M/uL (4.00-5.50); WHITE BLOOD COUNT 9.3 K/uL (4.1-10.2)
[2016-07-20 13:39] LABS: ANION GAP 14 MEQ/L (2-14); CHLORIDE 99 MEQ/L (99-109); GFR ESTIMATE (CALCULATED) 10 mL/min/; GLUCOSE 86 mg/dL (70-99); POTASSIUM 4.9 MEQ/L (3.7-5.4); SAMPLE HEMOLYSIS CHECK 0; SAMPLE ICTERIC CHECK 0; SAMPLE LIPEMIA CHECK 0; SODIUM 138 MEQ/L (136-147); UREA NITROGEN (BUN) 59 mg/dL (9-23)
[2016-07-20] MEDS ORDERED: Tums,OsCal PO (14:44)
[2016-07-20 17:18] LABS: POINT-OF-CARE METER ID UU14188577
[2016-07-21 00:21] VITALS: BP 138/72
[2016-07-21 06:45] LABS: POINT-OF-CARE METER ID UU14188577
[2016-07-21 07:13] LABS: POINT-OF-CARE METER ID UU14188577
[2016-07-21 08:00] VITALS: BP 119/64
[2016-07-21 09:25] LABS: POINT-OF-CARE METER ID UU14188577
[2016-07-21 12:09] LABS: POINT-OF-CARE METER ID UU14188577
[2016-07-21 12:30] LABS: C DIFF TOXIN NEGATIVE (NEGATIVE)
[2016-07-21 12:34] LABS: PROBE CHECK PASS; SPECIMEN PROCESSING CONTROL PASS
[2016-07-21 22:17] LABS: POINT-OF-CARE METER ID UU14188577
[2016-07-22 00:09] VITALS: BP 128/72
[2016-07-22 06:15] LABS: EOSINOPHIL (%) 1.4 % (0-5); EOSINOPHIL COUNT 0.1 K/uL (0-0.3); HEMATOCRIT 32.1 % (38.0-50.0); IMMATURE GRANULOCYTE (%) 1.8 % (0.0-0.7); IMMATURE GRANULOCYTE COUNT 0.2 K/uL; INSTRUMENT ABS NEUTROPHIL CT 7.3 K/uL; LYMPHOCYTE COUNT 0.7 K/uL (1.0-2.8); MCH 31.8 PG (29.0-34.0); MCHC 30.8 G/DL (30.0-36.0); MCV 103.2 FL (86-99); MEAN PLAT.VOLUME 10.6 uM^3 (9.0-12.4); MONOCYTE (%) 5.5 % (3-12); MONOCYTE COUNT 0.5 K/uL (0-0.8); NEUTROPHIL (%) 83.3 % (45-76); NEUTROPHIL COUNT 7.3 K/uL (1.8-6.4); RED BLOOD COUNT 3.11 M/uL (4.00-5.50); WHITE BLOOD COUNT 8.7 K/uL (4.1-10.2)
[2016-07-22 06:16] LABS: PLATELET COUNT 177 K/uL (156-360)
[2016-07-22 06:25] LABS: POINT-OF-CARE METER ID UU14188577
[2016-07-22 06:33] LABS: ANION GAP 12 MEQ/L (2-14); CHLORIDE 95 MEQ/L (99-109); POTASSIUM 4.5 MEQ/L (3.7-5.4); SAMPLE HEMOLYSIS CHECK 0; SAMPLE ICTERIC CHECK 0; SAMPLE LIPEMIA CHECK 0; SODIUM 137 MEQ/L (136-147); UREA NITROGEN (BUN) 31 mg/dL (9-23)
[2016-07-22 06:36] LABS: GFR ESTIMATE (CALCULATED) 14 mL/min/; GLUCOSE 245 mg/dL (70-99)
[2016-07-22 08:40] VITALS: BP 158/73
[2016-07-22 11:38] LABS: POINT-OF-CARE METER ID UU14149397
[2016-07-22 11:46] VITALS: BP 143/66
[2016-07-22 16:44] LABS: POINT-OF-CARE METER ID UU14149397
[2016-07-22 16:53] VITALS: BP 142/65
[2016-07-23 00:15] VITALS: BP 153/72
[2016-07-23 04:06] VITALS: BP 165/72
[2016-07-23 04:53] LABS: EOSINOPHIL (%) 1.9 % (0-5); EOSINOPHIL COUNT 0.2 K/uL (0-0.3); HEMATOCRIT 31.2 % (38.0-50.0); IMMATURE GRANULOCYTE (%) 1.6 % (0.0-0.7); IMMATURE GRANULOCYTE COUNT 0.1 K/uL; INSTRUMENT ABS NEUTROPHIL CT 7.3 K/uL; LYMPHOCYTE COUNT 0.7 K/uL (1.0-2.8); MCH 31.3 PG (29.0-34.0); MCHC 30.4 G/DL (30.0-36.0); MCV 102.6 FL (86-99); MEAN PLAT.VOLUME 10.1 uM^3 (9.0-12.4); MONOCYTE (%) 5.1 % (3-12); MONOCYTE COUNT 0.5 K/uL (0-0.8); NEUTROPHIL COUNT 7.3 K/uL (1.8-6.4); PLATELET COUNT 178 K/uL (156-360); RBC DIS.WIDTH-SD 58.8 % (39-53); RED BLOOD COUNT 3.04 M/uL (4.00-5.50); WHITE BLOOD COUNT 8.8 K/uL (4.1-10.2)
[2016-07-23 05:14] LABS: CHLORIDE 98 mEq/L (99-109); POTASSIUM 4.8 mEq/L (3.7-5.4); SODIUM 136 mEq/L (136-147)
[2016-07-23 05:16] LABS: GLUCOSE 296 mg/dL (70-99)
[2016-07-23 05:30] LABS: ANION GAP 14 MEQ/L (2-14)
[2016-07-23 05:33] LABS: GFR ESTIMATE (CALCULATED) 9 mL/min/; UREA NITROGEN (BUN) 45 mg/dL (9-23)
[2016-07-23 06:48] LABS: POINT-OF-CARE METER ID UU14149397
[2016-07-23 08:19] VITALS: BP 145/70
[2016-07-23 11:41] LABS: POINT-OF-CARE METER ID UU14149397
[2016-07-23 17:50] LABS: POINT-OF-CARE METER ID UU14149397
[2016-07-23 20:01] VITALS: BP 143/65
[2016-07-24] VITALS: BP 152/68
[2016-07-24 06:18] LABS: EOSINOPHIL (%) 1.5 % (0-5); EOSINOPHIL COUNT 0.1 K/uL (0-0.3); HEMATOCRIT 31.1 % (38.0-50.0); IMMATURE GRANULOCYTE (%) 1.8 % (0.0-0.7); IMMATURE GRANULOCYTE COUNT 0.2 K/uL; INSTRUMENT ABS NEUTROPHIL CT 7.3 K/uL; LYMPHOCYTE COUNT 0.8 K/uL (1.0-2.8); MCH 31.9 PG (29.0-34.0); MCHC 31.8 G/DL (30.0-36.0); MCV 100.3 FL (86-99); MEAN PLAT.VOLUME 10.6 uM^3 (9.0-12.4); MONOCYTE (%) 6.7 % (3-12); MONOCYTE COUNT 0.6 K/uL (0-0.8); NEUTROPHIL (%) 81.4 % (45-76); NEUTROPHIL COUNT 7.3 K/uL (1.8-6.4); PLATELET COUNT 189 K/uL (156-360); RBC DIS.WIDTH-CV 15.9 % (11.8-14.6); RBC DIS.WIDTH-SD 58.3 % (39-53); WHITE BLOOD COUNT 8.9 K/uL (4.1-10.2)
[2016-07-24 06:50] LABS: ANION GAP 10 MEQ/L (2-14); CHLORIDE 92 MEQ/L (99-109); GLUCOSE 151 mg/dL (70-99); POTASSIUM 4.4 MEQ/L (3.7-5.4); SAMPLE HEMOLYSIS CHECK 0; SAMPLE ICTERIC CHECK 0; SAMPLE LIPEMIA CHECK 0; SODIUM 136 MEQ/L (136-147); UREA NITROGEN (BUN) 33 mg/dL (9-23)
[2016-07-24 06:51] LABS: GFR ESTIMATE (CALCULATED) 12 mL/min/
[2016-07-24 08:09] VITALS: BP 125/63
[2016-07-24 12:27] LABS: POINT-OF-CARE METER ID UU14149397
[2016-07-24 15:00] VITALS: BP 120/57
== END 2016-07-24 15:24 | disposition home health service (06) | DRG 871 ==
LOC: EME 12:17 → EDOF 16:11 → 3EAST 16:11
PROVIDERS: Emergency Medicine; Hospitalist; Internal Medicine; Internal Medicine Nephrology
PROC: 5A1D60Z (ICD-10-PCS; principal; 2016-07-13)
PROC: 30233N1 Transfusion of Nonautologous Red Blood Cells into Peripheral Vein, Percutaneous Approach (ICD-10-PCS; 2016-07-16)
DX: A41.9 Sepsis, unspecified organism (principal); J96.21 Acute and chronic respiratory failure with hypoxia; J85.1 Abscess of lung with pneumonia; N18.6 End stage renal disease; J10.01 Influenza due to other identified influenza virus with the same other identified influenza virus pneumonia; J44.1 Chronic obstructive pulmonary disease with (acute) exacerbation; I12.0 Hypertensive chronic kidney disease with stage 5 chronic kidney disease or end stage renal disease; R04.2 Hemoptysis; I50.32 Chronic diastolic (congestive) heart failure; J98.11 Atelectasis; J90 Pleural effusion, not elsewhere classified; G47.33 Obstructive sleep apnea (adult) (pediatric); D63.1 Anemia in chronic kidney disease; L89.312 Pressure ulcer of right buttock, stage 2; L89.321 Pressure ulcer of left buttock, stage 1; I95.9 Hypotension, unspecified; E11.22 Type 2 diabetes mellitus with diabetic chronic kidney disease; E78.5 Hyperlipidemia, unspecified; E83.51 Hypocalcemia; E03.9 Hypothyroidism, unspecified; Z99.2 Dependence on renal dialysis; Z99.81 Dependence on supplemental oxygen; Z87.891 Personal history of nicotine dependence; Z91.19 Patient's noncompliance with other medical treatment and regimen; Z79.4 Long term (current) use of insulin; Z09 Encounter for follow-up examination after completed treatment for conditions other than malignant neoplasm; Z82.49 Family history of ischemic heart disease and other diseases of the circulatory system; Z80.0 Family history of malignant neoplasm of digestive organs
CPT/HCPCS: 71010; 71020; 71250; 71260; 74176; 80048; 80048 91; 80069; 80076; 80202; 81003; 82272; 82330; 82565; 82607; 82746; 82948; 83540; 83605; 83735; 84100; 84466; 85025; 85025 91; 85027; 85610; 86900; 86901; 86920; 87040; 87070; 87205; 87449; 87493; 87502; 87641; 93970; 94640; 94640 76; 94760; 94799; 99202; 99281; 99285; J0692; J0881; J1644; J1815; J1940; J2543; J2920; J2930; J3370; J7030; J7050; J7512; P9016

== ENCOUNTER 2016-09-26 09:35 | Inpatient (IN) | payer OTHER, MEDICARE ==
[~2016-09-26] VITALS: Ht 172.7 cm; Wt 74.0 kg
[~2016-09-26 09:35] MED LIST changes: +ARANESP100 MCG/0. IV; +ATIVAN0.5 MG PO; +AUGMENTIN500 MG PO; +CLEOCIN150 MG PO; +FLORASTOR250 MG PO
[2016-09-26 11:14] LABS: HEMATOCRIT 35.4 % (38.0-50.0); MCH 29.7 PG (29.0-34.0); MCHC 31.1 G/DL (30.0-36.0); MCV 95.7 FL (86-99); MEAN PLAT.VOLUME 9.8 uM^3 (9.0-12.4); PLATELET COUNT 177 K/uL (156-360); RBC DIS.WIDTH-CV 18.1 % (11.8-14.6); RBC DIS.WIDTH-SD 64.1 % (39-53); WHITE BLOOD COUNT 18.4 K/uL (4.1-10.2)
[2016-09-26 11:20] LABS: INTER. NORMALIZED RATIO 1.2
[2016-09-26 11:23] LABS: PTT 27.2 SEC (25-37)
[2016-09-26 11:35] LABS: CHLORIDE 94 mEq/L (99-109); SODIUM 139 mEq/L (136-147)
[2016-09-26 11:37] LABS: GLUCOSE 77 mg/dL (70-99); TROP-I INTERPRETATION NEGATIVE; TROPONIN-I 0.18 ng/mL (0.0-0.30)
[2016-09-26 11:39] LABS: ANION GAP 18 MEQ/L (2-14)
[2016-09-26 11:41] LABS: GFR ESTIMATE (CALCULATED) 8 mL/min/
[2016-09-26 11:42] LABS: UREA NITROGEN (BUN) 52 mg/dL (9-23)
[2016-09-26] MEDS ORDERED: SYNTHROID100 MCG PO (12:07)
[2016-09-26] MEDS ORDERED: TUMS500 MG PO (12:08)
[2016-09-26] MEDS ORDERED: RENVELA800 MG PO (12:09)
[2016-09-26] MEDS ORDERED: MINOXIDIL2.5 MG PO (12:09)
[2016-09-26 17:53] VITALS: BP 140/80
[2016-09-26 19:24] VITALS: BP 117/58
[2016-09-26 21:05] LABS: POINT-OF-CARE METER ID UU13113717
[2016-09-27] VITALS (7 sets, daily range): BP systolic 107–153; BP diastolic 47–81
[2016-09-27 06:21] LABS: EOSINOPHIL (%) 0.2 % (0-5); HEMATOCRIT 36.5 % (38.0-50.0); IMMATURE GRANULOCYTE (%) 0.4 % (0.0-0.7); IMMATURE GRANULOCYTE COUNT 0.1 K/uL; INSTRUMENT ABS NEUTROPHIL CT 9.4 K/uL; LYMPHOCYTE COUNT 1.2 K/uL (1.0-2.8); MCH 30.5 PG (29.0-34.0); MCHC 31.2 G/DL (30.0-36.0); MCV 97.6 FL (86-99); MEAN PLAT.VOLUME 9.8 uM^3 (9.0-12.4); MONOCYTE (%) 9.7 % (3-12); MONOCYTE COUNT 1.2 K/uL (0-0.8); NEUTROPHIL (%) 79.3 % (45-76); NEUTROPHIL COUNT 9.4 K/uL (1.8-6.4); PLATELET COUNT 145 K/uL (156-360); RBC DIS.WIDTH-CV 18.5 % (11.8-14.6); RED BLOOD COUNT 3.74 M/uL (4.00-5.50); WHITE BLOOD COUNT 11.8 K/uL (4.1-10.2)
[2016-09-27 06:39] LABS: ANION GAP 12 MEQ/L (2-14); CHLORIDE 93 MEQ/L (99-109); GFR ESTIMATE (CALCULATED) 13 mL/min/; POTASSIUM 4.4 MEQ/L (3.7-5.4); SAMPLE HEMOLYSIS CHECK 0; SAMPLE ICTERIC CHECK 0; SAMPLE LIPEMIA CHECK 0; SODIUM 139 MEQ/L (136-147); UREA NITROGEN (BUN) 29 mg/dL (9-23)
[2016-09-27 06:43] LABS: GLUCOSE 126 mg/dL (70-99)
[2016-09-27 11:26] LABS: C DIFF TOXIN NEGATIVE (NEGATIVE); PROBE CHECK PASS; SPECIMEN PROCESSING CONTROL PASS
[2016-09-27 16:44] LABS: POINT-OF-CARE METER ID UU14188625
[2016-09-27 18:50] LABS: POINT-OF-CARE METER ID UU13113717
[2016-09-27 21:19] LABS: POINT-OF-CARE USER ID BHSKTD
[2016-09-27 23:10] LABS: POINT-OF-CARE USER ID BHSKTD
[2016-09-27 23:48] LABS: METH RESISTANT S AUREUS PCR NEGATIVE (NEGATIVE)
[2016-09-28 00:46] LABS: PROBE CHECK PASS; SPECIMEN PROCESSING CONTROL PASS
[2016-09-28 03:56] VITALS: BP 140/76
[2016-09-28 06:44] LABS: POINT-OF-CARE METER ID UU14188625
[2016-09-28 07:52] VITALS: BP 132/78
[2016-09-28 08:22] LABS: INTERNAL CONTROL VALID? YES
[2016-09-28 08:28] LABS: HEMATOCRIT 34.1 % (38.0-50.0); MCHC 31.1 G/DL (30.0-36.0); MCV 96.6 FL (86-99); PLATELET COUNT 152 K/uL (156-360); RBC DIS.WIDTH-CV 18.3 % (11.8-14.6); RBC DIS.WIDTH-SD 65.1 % (39-53); RED BLOOD COUNT 3.53 M/uL (4.00-5.50); WHITE BLOOD COUNT 8.6 K/uL (4.1-10.2)
[2016-09-28 08:57] LABS: ANION GAP 16 MEQ/L (2-14); CHLORIDE 92 MEQ/L (99-109); POTASSIUM 4.5 MEQ/L (3.7-5.4); SAMPLE HEMOLYSIS CHECK 0; SAMPLE ICTERIC CHECK 0; SAMPLE LIPEMIA CHECK 0; SODIUM 135 MEQ/L (136-147); UREA NITROGEN (BUN) 41 mg/dL (9-23)
[2016-09-28 09:00] LABS: GFR ESTIMATE (CALCULATED) 9 mL/min/; GLUCOSE 283 mg/dL (70-99)
[2016-09-28 09:01] LABS: VANCOMYCIN, TROUGH < 2.0 MCG/ML (10-20)
[2016-09-28 10:19] LABS: POINT-OF-CARE METER ID UU13113717
[2016-09-28 15:30] VITALS: BP 131/60
[2016-09-28 16:01] VITALS: BP 147/68
[2016-09-28 20:14] VITALS: BP 135/63
[2016-09-28 23:52] VITALS: BP 131/60
[2016-09-29 03:38] VITALS: BP 140/80
[2016-09-29 07:28] LABS: POINT-OF-CARE METER ID UU14188625
[2016-09-29 07:43] VITALS: BP 112/60
[2016-09-29] MEDS ORDERED: LEVOFLOXACIN750 MG PO (09:23)
[2016-09-29] MEDS ORDERED: FLONASE16 G1 BOTH NARES (09:37)
[2016-09-29 11:12] LABS: POINT-OF-CARE METER ID UU14188625
== END 2016-09-29 13:02 | disposition home health service (06) | DRG 190 ==
LOC: EME 09:35 → 5SOUTH 12:04 → EDOF 12:04 → 5SOUTH 17:51
PROVIDERS: Emergency Medicine; Hospitalist; Internal Medicine; Physician Assistant Medical
PROC: 5A1D60Z (ICD-10-PCS; principal; 2016-09-26)
DX: J44.0 Chronic obstructive pulmonary disease with (acute) lower respiratory infection (principal); J18.9 Pneumonia, unspecified organism; J96.21 Acute and chronic respiratory failure with hypoxia; J96.22 Acute and chronic respiratory failure with hypercapnia; N18.6 End stage renal disease; I50.32 Chronic diastolic (congestive) heart failure; J98.11 Atelectasis; J90 Pleural effusion, not elsewhere classified; I13.2 Hypertensive heart and chronic kidney disease with heart failure and with stage 5 chronic kidney disease, or end stage renal disease; J44.1 Chronic obstructive pulmonary disease with (acute) exacerbation; J20.9 Acute bronchitis, unspecified; D63.1 Anemia in chronic kidney disease; E03.9 Hypothyroidism, unspecified; E11.649 Type 2 diabetes mellitus with hypoglycemia without coma; E11.22 Type 2 diabetes mellitus with diabetic chronic kidney disease; M19.90 Unspecified osteoarthritis, unspecified site; J98.4 Other disorders of lung; I25.10 Atherosclerotic heart disease of native coronary artery without angina pectoris; E78.5 Hyperlipidemia, unspecified; M10.9 Gout, unspecified; K21.9 Gastro-esophageal reflux disease without esophagitis; Z99.81 Dependence on supplemental oxygen; Z99.2 Dependence on renal dialysis; Z95.810 Presence of automatic (implantable) cardiac defibrillator; Z87.891 Personal history of nicotine dependence; Z85.828 Personal history of other malignant neoplasm of skin; Z87.01 Personal history of pneumonia (recurrent); Z79.4 Long term (current) use of insulin; Z80.0 Family history of malignant neoplasm of digestive organs; Z82.49 Family history of ischemic heart disease and other diseases of the circulatory system
CPT/HCPCS: 71020; 71250; 76705; 80048; 80202; 82948; 84484; 85025; 85027; 85610; 85730; 87040; 87070; 87077; 87186; 87205; 87449; 87493; 87506; 87641; 93005; 94640; 94640 76; 94799; 99202; 99281; 99284; J0456; J1644; J1815; J2543; J3370; J7030; J7050; J7512

== ENCOUNTER 2016-10-01 11:04 | Emergency (ER) | payer OTHER, MEDICARE ==
[~2016-10-01] VITALS: Ht 172.7 cm; Wt 82.0 kg
[~2016-10-01 11:04] MED LIST changes: +FLONASE16 G1 BOTH NARES; +LEVOFLOXACIN750 MG PO
[2016-10-01 12:50] VITALS: BP 160/76
== END 2016-10-01 12:59 | disposition home or self-care (01) ==
LOC: EME 11:04
DX: S20.212A Contusion of left front wall of thorax, initial encounter (principal); W01.0XXA Fall on same level from slipping, tripping and stumbling without subsequent striking against object, initial encounter; I12.9 Hypertensive chronic kidney disease with stage 1 through stage 4 chronic kidney disease, or unspecified chronic kidney disease; N18.9 Chronic kidney disease, unspecified; J44.0 Chronic obstructive pulmonary disease with (acute) lower respiratory infection; J18.9 Pneumonia, unspecified organism; Z99.2 Dependence on renal dialysis; K21.9 Gastro-esophageal reflux disease without esophagitis; E11.9 Type 2 diabetes mellitus without complications; Z79.4 Long term (current) use of insulin; Z79.82 Long term (current) use of aspirin; Z87.891 Personal history of nicotine dependence; Z90.49 Acquired absence of other specified parts of digestive tract
CPT/HCPCS: 71020; 99281; 99284

== ENCOUNTER 2016-10-14 21:14 | Inpatient (IN) | payer OTHER, MEDICARE ==
[~2016-10-14] VITALS: Ht 172.7 cm; Wt 84.5 kg
[2016-10-14 21:53] LABS: HEMATOCRIT 33.8 % (38.0-50.0); MCH 29.2 PG (29.0-34.0); MCHC 30.2 G/DL (30.0-36.0); MCV 96.8 FL (86-99); MEAN PLAT.VOLUME 10.1 uM^3 (9.0-12.4); PLATELET COUNT 214 K/uL (156-360); RBC DIS.WIDTH-CV 18.2 % (11.8-14.6); RBC DIS.WIDTH-SD 65.5 % (39-53); RED BLOOD COUNT 3.49 M/uL (4.00-5.50); WHITE BLOOD COUNT 11.6 K/uL (4.1-10.2)
[2016-10-14 22:02] LABS: CHLORIDE 91 mEq/L (99-109); SODIUM 136 mEq/L (136-147)
[2016-10-14 22:03] LABS: GLUCOSE 137 mg/dL (70-99)
[2016-10-14 22:04] LABS: POTASSIUM 6.2 mEq/L (3.7-5.4)
[2016-10-14 22:05] LABS: ANION GAP 17 MEQ/L (2-14)
[2016-10-14 22:07] LABS: GFR ESTIMATE (CALCULATED) 9 mL/min/
[2016-10-14 22:08] LABS: UREA NITROGEN (BUN) 46 mg/dL (9-23)
[2016-10-14 22:57] LABS: PROTHROMBIN TIME 11.3 SEC (10.2-12.9)
[2016-10-14 23:10] LABS: TROP-I INTERPRETATION NEGATIVE; TROPONIN-I 0.16 ng/mL (0.0-0.30)
[2016-10-14] MEDS ORDERED: CREON DR 36,001 EACH PO (23:41)
[2016-10-14] MEDS ORDERED: TRAMADOL HCL50 MG PO (23:42)
[2016-10-15 00:32] LABS: POINT-OF-CARE METER ID UU14100415
[2016-10-15 00:57] LABS: POINT-OF-CARE METER ID UU14100415
[2016-10-15 01:13] LABS: POINT-OF-CARE METER ID UU14100415
[2016-10-15 04:02] VITALS: BP 169/76
[2016-10-15 05:58] LABS: HEMATOCRIT 35.4 % (38.0-50.0); MCH 29.4 PG (29.0-34.0); MCHC 30.5 G/DL (30.0-36.0); MCV 96.5 FL (86-99); MEAN PLAT.VOLUME 10.2 uM^3 (9.0-12.4); PLATELET COUNT 189 K/uL (156-360); RBC DIS.WIDTH-CV 18.2 % (11.8-14.6); RBC DIS.WIDTH-SD 65.4 % (39-53); RED BLOOD COUNT 3.67 M/uL (4.00-5.50); WHITE BLOOD COUNT 11.9 K/uL (4.1-10.2)
[2016-10-15 06:34] LABS: ANION GAP 17 MEQ/L (2-14); CHLORIDE 94 MEQ/L (99-109); GFR ESTIMATE (CALCULATED) 9 mL/min/; GLUCOSE 192 mg/dL (70-99); SAMPLE HEMOLYSIS CHECK 0; SAMPLE ICTERIC CHECK 0; SAMPLE LIPEMIA CHECK 0; SODIUM 138 MEQ/L (136-147); UREA NITROGEN (BUN) 47 mg/dL (9-23)
[2016-10-15 06:43] LABS: POTASSIUM 6.4 MEQ/L (3.7-5.4)
[2016-10-15 07:41] VITALS: BP 173/80
[2016-10-15 07:46] LABS: POINT-OF-CARE METER ID UU13113717
[2016-10-15 11:29] VITALS: BP 142/78
[2016-10-15 11:38] LABS: POINT-OF-CARE METER ID UU14174225
[2016-10-15 11:42] LABS: POINT-OF-CARE METER ID UU14174225
[2016-10-15 14:21] LABS: ANION GAP 18 MEQ/L (2-14); CHLORIDE 93 MEQ/L (99-109); GFR ESTIMATE (CALCULATED) 9 mL/min/; GLUCOSE 241 mg/dL (70-99); POTASSIUM 5.3 MEQ/L (3.7-5.4); SAMPLE HEMOLYSIS CHECK 0; SAMPLE ICTERIC CHECK 0; SAMPLE LIPEMIA CHECK 0; SODIUM 138 MEQ/L (136-147); UREA NITROGEN (BUN) 56 mg/dL (9-23)
[2016-10-15 14:37] LABS: AHBS INDEX 0.92; HBSG INDEX 0.19; HEPATITIS B SURFACE ANTIBODY Nonreactive
[2016-10-15 18:00] LABS: POINT-OF-CARE METER ID UU14174225
[2016-10-15 23:59] VITALS: BP 165/82
[2016-10-16 03:55] VITALS: BP 156/80
[2016-10-16 06:21] LABS: HEMATOCRIT 33.4 % (38.0-50.0); MCH 30.6 PG (29.0-34.0); MCHC 31.1 G/DL (30.0-36.0); MCV 98.2 FL (86-99); PLATELET COUNT 176 K/uL (156-360); RBC DIS.WIDTH-CV 18.7 % (11.8-14.6); RBC DIS.WIDTH-SD 66.2 % (39-53)
[2016-10-16 07:05] LABS: ANION GAP 12 MEQ/L (2-14); CHLORIDE 95 MEQ/L (99-109); GFR ESTIMATE (CALCULATED) 13 mL/min/; GLUCOSE 272 mg/dL (70-99); POTASSIUM 4.4 MEQ/L (3.7-5.4); SAMPLE HEMOLYSIS CHECK 0; SAMPLE ICTERIC CHECK 0; SAMPLE LIPEMIA CHECK 0; SODIUM 138 MEQ/L (136-147); UREA NITROGEN (BUN) 34 mg/dL (9-23)
[2016-10-16 07:48] VITALS: BP 156/72
[2016-10-16 10:20] LABS: POINT-OF-CARE METER ID UU14174225
[2016-10-16 12:06] VITALS: BP 154/69
[2016-10-16 13:15] VITALS: BP 132/65
[2016-10-16 14:27] LABS: POINT-OF-CARE METER ID UU14107333
[2016-10-16 17:57] LABS: POINT-OF-CARE METER ID UU13113675
[2016-10-16 20:00] VITALS: BP 129/97
[2016-10-16 21:57] LABS: POINT-OF-CARE METER ID UU13113717
[2016-10-16 23:15] VITALS: BP 131/57
[2016-10-17 04:32] VITALS: BP 150/71
[2016-10-17 06:27] LABS: POINT-OF-CARE METER ID UU14188625
[2016-10-17 07:35] LABS: POINT-OF-CARE METER ID UU14188625
[2016-10-17 07:35] LABS: POINT-OF-CARE METER ID UU14188625
[2016-10-17 07:36] LABS: POINT-OF-CARE METER ID UU13113675
[2016-10-17 07:48] VITALS: BP 131/59
[2016-10-17 08:41] LABS: EOSINOPHIL (%) 0.3 % (0-5); HEMATOCRIT 32.5 % (38.0-50.0); IMMATURE GRANULOCYTE (%) 0.4 % (0.0-0.7); INSTRUMENT ABS NEUTROPHIL CT 8.3 K/uL; LYMPHOCYTE COUNT 1.4 K/uL (1.0-2.8); MCH 30.7 PG (29.0-34.0); MCHC 31.4 G/DL (30.0-36.0); MCV 97.9 FL (86-99); MEAN PLAT.VOLUME 10.2 uM^3 (9.0-12.4); MONOCYTE (%) 9.3 % (3-12); NEUTROPHIL (%) 77.2 % (45-76); NEUTROPHIL COUNT 8.3 K/uL (1.8-6.4); PLATELET COUNT 179 K/uL (156-360); RBC DIS.WIDTH-CV 18.8 % (11.8-14.6); RBC DIS.WIDTH-SD 67.4 % (39-53); RED BLOOD COUNT 3.32 M/uL (4.00-5.50); WHITE BLOOD COUNT 10.7 K/uL (4.1-10.2)
[2016-10-17 08:49] LABS: ANION GAP 16 MEQ/L (2-14); CHLORIDE 96 MEQ/L (99-109); SAMPLE HEMOLYSIS CHECK 0; SAMPLE ICTERIC CHECK 0; SAMPLE LIPEMIA CHECK 0; SODIUM 138 MEQ/L (136-147)
[2016-10-17 09:04] LABS: GFR ESTIMATE (CALCULATED) 9 mL/min/; GLUCOSE 146 mg/dL (70-99)
[2016-10-17 09:05] LABS: UREA NITROGEN (BUN) 57 mg/dL (9-23)
[2016-10-17 13:02] LABS: POINT-OF-CARE METER ID UU13113717
[2016-10-17 15:58] VITALS: BP 127/60
[2016-10-17] MEDS ORDERED: CLEOCIN150 MG PO (16:03)
[2016-10-17] MEDS ORDERED: PREDNISONE5 MG PO (16:09)
[2016-10-19 21:21] LABS: Yeast Phase Anitbody 1:16 (<1:8)
== END 2016-10-17 18:15 | DRG 264 ==
LOC: EME → EDBD 21:14 → EME 21:14 → EDOF 23:45 → 5SOUTH 23:45 → ENRESERV 23:46 → 5SOUTH 10-15 02:35 → ENRESERVTM 10-15 02:36 → 5SOUTH 10-17 18:15
PROVIDERS: Emergency Medicine; Hospitalist; Internal Medicine; Internal Medicine Nephrology
PROC: 5A1D60Z (ICD-10-PCS; principal; 2016-10-15)
PROC: 0BBG8ZX Excision of Left Upper Lung Lobe, Via Natural or Artificial Opening Endoscopic, Diagnostic (ICD-10-PCS; 2016-10-16)
PROC: 0B9G8ZX Drainage of Left Upper Lung Lobe, Via Natural or Artificial Opening Endoscopic, Diagnostic (ICD-10-PCS; 2016-10-16)
DX: I13.2 Hypertensive heart and chronic kidney disease with heart failure and with stage 5 chronic kidney disease, or end stage renal disease (principal); J96.21 Acute and chronic respiratory failure with hypoxia; J18.9 Pneumonia, unspecified organism; T17.598A Other foreign object in bronchus causing other injury, initial encounter; E11.22 Type 2 diabetes mellitus with diabetic chronic kidney disease; N18.6 End stage renal disease; J44.0 Chronic obstructive pulmonary disease with (acute) lower respiratory infection; I27.2 Other secondary pulmonary hypertension; I42.9 Cardiomyopathy, unspecified; I50.33 Acute on chronic diastolic (congestive) heart failure; J96.22 Acute and chronic respiratory failure with hypercapnia; Z99.81 Dependence on supplemental oxygen; J44.1 Chronic obstructive pulmonary disease with (acute) exacerbation; E87.5 Hyperkalemia; R00.1 Bradycardia, unspecified; D63.8 Anemia in other chronic diseases classified elsewhere; E03.9 Hypothyroidism, unspecified; Z99.2 Dependence on renal dialysis; Z79.4 Long term (current) use of insulin; E87.6 Hypokalemia; K21.9 Gastro-esophageal reflux disease without esophagitis; M10.9 Gout, unspecified; Z87.891 Personal history of nicotine dependence; Z79.82 Long term (current) use of aspirin; Y95 Nosocomial condition; Z90.411 Acquired partial absence of pancreas; E78.5 Hyperlipidemia, unspecified; I08.3 Combined rheumatic disorders of mitral, aortic and tricuspid valves; G47.33 Obstructive sleep apnea (adult) (pediatric); R91.1 Solitary pulmonary nodule; Z91.19 Patient's noncompliance with other medical treatment and regimen; E11.649 Type 2 diabetes mellitus with hypoglycemia without coma; Z95.810 Presence of automatic (implantable) cardiac defibrillator; Z86.73 Personal history of transient ischemic attack (TIA), and cerebral infarction without residual deficits
CPT/HCPCS: 71010; 71020; 76001; 80048; 80069; 82948; 83880; 84484; 85025; 85027; 85610; 85730; 86698 90; 86706; 87070; 87116; 87186; 87205; 87206; 87340; 88108; 88173; 88305; 88312; 93005; 94640; 94640 76; 94799; 99202; 99281; 99285; J0330; J0610; J1644; J1815; J1940; J2543; J2765; J2920; J3010; J7050; J7512

== ENCOUNTER 2017-01-20 11:27 | Emergency (ER) | payer OTHER, MEDICARE ==
[~2017-01-20] VITALS: Ht 172.7 cm; Wt 82.9 kg
[~2017-01-20 11:27] MED LIST changes: +PREDNISONE5 MG PO; +TRAMADOL HCL50 MG PO
[2017-01-20 14:42] LABS: POINT-OF-CARE METER ID UU13113747
[2017-01-20] MEDS ORDERED: LORCET 5-325 M1 EACH PO (16:53)
[2017-01-20 17:47] VITALS: BP 137/75
== END 2017-01-20 17:50 | disposition home or self-care (01) ==
LOC: EME 11:27
PROVIDERS: Emergency Medicine
PROC: 3E0234Z Introduction of Serum, Toxoid and Vaccine into Muscle, Percutaneous Approach (ICD-10-PCS; principal; 2017-01-20)
DX: S20.219A Contusion of unspecified front wall of thorax, initial encounter (principal); S60.512A Abrasion of left hand, initial encounter; S50.311A Abrasion of right elbow, initial encounter; S50.811A Abrasion of right forearm, initial encounter; J90 Pleural effusion, not elsewhere classified; W01.0XXA Fall on same level from slipping, tripping and stumbling without subsequent striking against object, initial encounter; I13.0 Hypertensive heart and chronic kidney disease with heart failure and stage 1 through stage 4 chronic kidney disease, or unspecified chronic kidney disease; E11.22 Type 2 diabetes mellitus with diabetic chronic kidney disease; N18.9 Chronic kidney disease, unspecified; I50.9 Heart failure, unspecified; Z79.4 Long term (current) use of insulin; Z99.2 Dependence on renal dialysis; J44.9 Chronic obstructive pulmonary disease, unspecified; K21.9 Gastro-esophageal reflux disease without esophagitis; Z86.73 Personal history of transient ischemic attack (TIA), and cerebral infarction without residual deficits; Z87.891 Personal history of nicotine dependence
CPT/HCPCS: 71101; 71250; 82948; 99281; 99285

== ENCOUNTER 2017-02-03 17:48 | Inpatient (IN) | payer OTHER, MEDICARE ==
[~2017-02-03] VITALS: Ht 172.7 cm; Wt 78.9 kg
[~2017-02-03 17:48] MED LIST changes: +LORCET 5-325 M1 EACH PO; +VITAMIN D310000 UNI1 PO; -VITAMIN D32000 UNI1 PO
[2017-02-03 18:16] LABS: HEMATOCRIT 34.5 % (38.0-50.0); MCH 33.3 PG (29.0-34.0); MCHC 32.2 G/DL (30.0-36.0); MCV 103.6 FL (86-99); MEAN PLAT.VOLUME 10.5 uM^3 (9.0-12.4); PLATELET COUNT 177 K/uL (156-360); RBC DIS.WIDTH-CV 15.8 % (11.8-14.6); RBC DIS.WIDTH-SD 60.2 % (39-53); RED BLOOD COUNT 3.33 M/uL (4.00-5.50); WHITE BLOOD COUNT 11.1 K/uL (4.1-10.2)
[2017-02-03 18:25] LABS: CHLORIDE 91 mEq/L (99-109); POTASSIUM 4.5 mEq/L (3.7-5.4); SODIUM 134 mEq/L (136-147)
[2017-02-03 18:27] LABS: GLUCOSE 351 mg/dL (70-99)
[2017-02-03 18:29] LABS: ANION GAP 16 MEQ/L (2-14)
[2017-02-03 18:31] LABS: GFR ESTIMATE (CALCULATED) 10 mL/min/
[2017-02-03 18:32] LABS: UREA NITROGEN (BUN) 43 mg/dL (9-23)
[2017-02-03] MEDS ORDERED: FLONASE16 G1 BOTH NARES (20:08)
[2017-02-03] MEDS ORDERED: BYSTOLIC10 MG PO (20:10)
[2017-02-04] VITALS (7 sets, daily range): BP systolic 112–152; BP diastolic 58–82
[2017-02-04 00:49] LABS: POINT-OF-CARE METER ID UU14314084
[2017-02-04 05:54] LABS: HEMATOCRIT 32.5 % (38.0-50.0); MCH 32.9 PG (29.0-34.0); MCV 102.8 FL (86-99); MEAN PLAT.VOLUME 10.4 uM^3 (9.0-12.4); PLATELET COUNT 159 K/uL (156-360); RBC DIS.WIDTH-CV 15.8 % (11.8-14.6); RBC DIS.WIDTH-SD 59.2 % (39-53); RED BLOOD COUNT 3.16 M/uL (4.00-5.50); WHITE BLOOD COUNT 11.2 K/uL (4.1-10.2)
[2017-02-04 06:30] LABS: ANION GAP 17 MEQ/L (2-14); CHLORIDE 90 MEQ/L (99-109); GFR ESTIMATE (CALCULATED) 8 mL/min/; GLUCOSE 250 mg/dL (70-99); POTASSIUM 4.6 MEQ/L (3.7-5.4); SAMPLE HEMOLYSIS CHECK 0; SAMPLE ICTERIC CHECK 0; SAMPLE LIPEMIA CHECK 0; SODIUM 136 MEQ/L (136-147); UREA NITROGEN (BUN) 51 mg/dL (9-23)
[2017-02-04 06:38] LABS: POINT-OF-CARE METER ID UU14162508
[2017-02-04 17:19] LABS: POINT-OF-CARE METER ID UU14314084
[2017-02-04 21:47] LABS: POINT-OF-CARE METER ID UU14162508
[2017-02-05 03:00] VITALS: BP 127/66
[2017-02-05 06:23] LABS: POINT-OF-CARE METER ID UU14162508
[2017-02-05 07:47] VITALS: BP 131/65
[2017-02-05 11:33] LABS: POINT-OF-CARE METER ID UU14162508
[2017-02-05 15:57] LABS: Estimated Average Glucose 177 mg/dL (70-123); HEMOGLOBIN A1c (GLYCOHEMOGLOB) 7.8 % HGB (Below 5.7)
[2017-02-05 16:24] VITALS: BP 183/78
[2017-02-05 16:32] LABS: POINT-OF-CARE METER ID UU14162508
[2017-02-05 20:43] LABS: POINT-OF-CARE METER ID UU14162508
[2017-02-05 22:25] LABS: POINT-OF-CARE METER ID UU14162508
[2017-02-05 23:40] VITALS: BP 136/67
[2017-02-06 05:56] LABS: POINT-OF-CARE METER ID UU14208750
[2017-02-06 06:38] LABS: HEMATOCRIT 33.2 % (38.0-50.0); MCH 33.4 PG (29.0-34.0); MCHC 32.2 G/DL (30.0-36.0); MCV 103.8 FL (86-99); MEAN PLAT.VOLUME 10.6 uM^3 (9.0-12.4); NRBC (%) 0.2 /100 WBC (0-0); PLATELET COUNT 164 K/uL (156-360); RBC DIS.WIDTH-CV 15.8 % (11.8-14.6); RBC DIS.WIDTH-SD 59.7 % (39-53); WHITE BLOOD COUNT 9.3 K/uL (4.1-10.2)
[2017-02-06 08:41] LABS: ANION GAP 16 MEQ/L (2-14); CHLORIDE 94 MEQ/L (99-109); POTASSIUM 4.3 MEQ/L (3.7-5.4); SAMPLE HEMOLYSIS CHECK 0; SAMPLE ICTERIC CHECK 0; SAMPLE LIPEMIA CHECK 0; SODIUM 133 MEQ/L (136-147)
[2017-02-06 08:46] LABS: GFR ESTIMATE (CALCULATED) 10 mL/min/; GLUCOSE 357 mg/dL (70-99); UREA NITROGEN (BUN) 61 mg/dL (9-23)
[2017-02-06 13:05] VITALS: BP 151/75
[2017-02-06 13:20] LABS: POINT-OF-CARE METER ID UU14208750
[2017-02-06 15:12] VITALS: BP 137/63
[2017-02-06 16:36] LABS: POINT-OF-CARE METER ID UU14162508
[2017-02-06 21:48] LABS: POINT-OF-CARE METER ID UU14162508
[2017-02-06 23:38] VITALS: BP 167/77
[2017-02-06 23:59] LABS: POINT-OF-CARE METER ID UU14162508
[2017-02-07 03:46] LABS: POINT-OF-CARE METER ID UU14162508
[2017-02-07 06:44] LABS: POINT-OF-CARE METER ID UU14208750
[2017-02-07 07:28] VITALS: BP 122/68
[2017-02-07 11:25] LABS: POINT-OF-CARE METER ID UU14162508; POINT-OF-CARE USER ID PUTDRM
[2017-02-07 15:10] VITALS: BP 139/70
[2017-02-07 16:15] LABS: C DIFF TOXIN NEGATIVE (NEGATIVE)
[2017-02-07 16:25] LABS: PROBE CHECK PASS; SPECIMEN PROCESSING CONTROL PASS
[2017-02-07 16:47] LABS: POINT-OF-CARE METER ID UU14208750
[2017-02-07 19:53] VITALS: BP 140/85
[2017-02-07 21:28] LABS: POINT-OF-CARE METER ID UU14208750
[2017-02-08 01:08] VITALS: BP 154/68
[2017-02-08 06:25] LABS: POINT-OF-CARE METER ID UU14162508
[2017-02-08 07:21] VITALS: BP 128/68
[2017-02-08 07:31] LABS: EOSINOPHIL (%) 0.7 % (0-5); EOSINOPHIL COUNT 0.1 K/uL (0-0.3); IMMATURE GRANULOCYTE (%) 1.5 % (0.0-0.7); IMMATURE GRANULOCYTE COUNT 0.2 K/uL; INSTRUMENT ABS NEUTROPHIL CT 9.5 K/uL; LYMPHOCYTE COUNT 1.1 K/uL (1.0-2.8); MCHC 32.1 G/DL (30.0-36.0); MCV 105.8 FL (86-99); MEAN PLAT.VOLUME 10.9 uM^3 (9.0-12.4); MONOCYTE (%) 6.8 % (3-12); MONOCYTE COUNT 0.8 K/uL (0-0.8); NEUTROPHIL (%) 81.4 % (45-76); NEUTROPHIL COUNT 9.5 K/uL (1.8-6.4); NRBC (%) 0.4 /100 WBC (0-0); PLATELET COUNT 155 K/uL (156-360); RBC DIS.WIDTH-CV 16.5 % (11.8-14.6); RBC DIS.WIDTH-SD 62.5 % (39-53); RED BLOOD COUNT 3.12 M/uL (4.00-5.50); WHITE BLOOD COUNT 11.7 K/uL (4.1-10.2)
[2017-02-08 07:51] LABS: POINT-OF-CARE METER ID UU13113696
[2017-02-08 07:52] LABS: ANION GAP 14 MEQ/L (2-14); CHLORIDE 101 MEQ/L (99-109); POTASSIUM 4.1 MEQ/L (3.7-5.4); SAMPLE HEMOLYSIS CHECK 0; SAMPLE ICTERIC CHECK 0; SAMPLE LIPEMIA CHECK 0; SODIUM 138 MEQ/L (136-147)
[2017-02-08 07:58] LABS: GFR ESTIMATE (CALCULATED) 11 mL/min/; UREA NITROGEN (BUN) 53 mg/dL (9-23)
[2017-02-08 08:00] LABS: GLUCOSE 76 mg/dL (70-99)
[2017-02-08 09:36] LABS: POINT-OF-CARE METER ID UU13113819
[2017-02-08 10:09] VITALS: BP 136/72
[2017-02-08 11:32] LABS: POINT-OF-CARE METER ID UU14162508
[2017-02-08 11:42] VITALS: BP 140/73
[2017-02-08 18:34] VITALS: BP 137/65
[2017-02-08 18:41] LABS: POINT-OF-CARE METER ID UU14162508
[2017-02-08 23:37] VITALS: BP 137/67
[2017-02-09 06:41] LABS: POINT-OF-CARE METER ID UU14162508
[2017-02-09 07:05] VITALS: BP 138/71
[2017-02-09] MEDS ORDERED: LEVOFLOXACIN250 MG PO (09:45)
[2017-02-09] MEDS ORDERED: PREDNISONE10 MG PO (09:45)
[2017-02-09 12:30] LABS: POINT-OF-CARE METER ID UU14162508
[2017-02-09 22:35] LABS: POINT-OF-CARE METER ID UU14162508
== END 2017-02-09 12:40 | disposition home health service (06) | DRG 166 ==
LOC: EME 17:48 → 2EAST 21:28 → EDOF 21:28 → ENRESERV 21:30 → 2EAST 23:17
PROVIDERS: Hospitalist; Internal Medicine; Internal Medicine Nephrology
PROC: 5A1D70Z Performance of Urinary Filtration, Intermittent, Less than 6 Hours Per Day (ICD-10-PCS; principal; 2017-02-04)
PROC: 05753ZZ Dilation of Right Subclavian Vein, Percutaneous Approach (ICD-10-PCS; 2017-02-08)
PROC: 057D3ZZ Dilation of Right Cephalic Vein, Percutaneous Approach (ICD-10-PCS; 2017-02-08)
DX: J18.9 Pneumonia, unspecified organism (principal); J20.9 Acute bronchitis, unspecified; J44.0 Chronic obstructive pulmonary disease with (acute) lower respiratory infection; J44.1 Chronic obstructive pulmonary disease with (acute) exacerbation; E11.65 Type 2 diabetes mellitus with hyperglycemia; T38.0X5A Adverse effect of glucocorticoids and synthetic analogues, initial encounter; I13.2 Hypertensive heart and chronic kidney disease with heart failure and with stage 5 chronic kidney disease, or end stage renal disease; I50.32 Chronic diastolic (congestive) heart failure; N18.6 End stage renal disease; E11.22 Type 2 diabetes mellitus with diabetic chronic kidney disease; I27.20 Pulmonary hypertension, unspecified; T82.858A Stenosis of other vascular prosthetic devices, implants and grafts, initial encounter; I87.1 Compression of vein; D63.1 Anemia in chronic kidney disease; S22.31XD Fracture of one rib, right side, subsequent encounter for fracture with routine healing; W19.XXXD Unspecified fall, subsequent encounter; G47.33 Obstructive sleep apnea (adult) (pediatric); J98.11 Atelectasis; K21.9 Gastro-esophageal reflux disease without esophagitis; M10.9 Gout, unspecified; E03.9 Hypothyroidism, unspecified; Y71.2 Prosthetic and other implants, materials and accessory cardiovascular devices associated with adverse incidents; Y95 Nosocomial condition; Z99.81 Dependence on supplemental oxygen; Z99.2 Dependence on renal dialysis; Z95.810 Presence of automatic (implantable) cardiac defibrillator; Z79.4 Long term (current) use of insulin; Z79.82 Long term (current) use of aspirin; Z86.73 Personal history of transient ischemic attack (TIA), and cerebral infarction without residual deficits; Z87.01 Personal history of pneumonia (recurrent); Z87.891 Personal history of nicotine dependence; Z90.411 Acquired partial absence of pancreas; Z91.19 Patient's noncompliance with other medical treatment and regimen
CPT/HCPCS: 71020; 80048; 80069; 82948; 83036; 83605; 85025; 85027; 87040; 87070; 87077; 87106; 87186; 87205; 87493; 93005; 94640; 94640 76; 94760; 94799; 99202; 99281; 99285; A6212; C1725; C1769; C1894; J0456; J0696; J1644; J1815; J2250; J2543; J2920; J3010; J3370; J7050; J7512

== ENCOUNTER 2017-03-19 14:26 | Emergency (ER) | payer OTHER, MEDICARE ==
[~2017-03-19] VITALS: Ht 172.7 cm; Wt 76.8 kg
[~2017-03-19 14:26] MED LIST changes: +LEVOFLOXACIN250 MG PO; +PREDNISONE10 MG PO
[2017-03-19 16:10] VITALS: BP 125/69
== END 2017-03-19 16:11 | disposition home or self-care (01) ==
LOC: EME 14:26
DX: R60.9 Edema, unspecified (principal); I13.2 Hypertensive heart and chronic kidney disease with heart failure and with stage 5 chronic kidney disease, or end stage renal disease; I50.9 Heart failure, unspecified; N18.6 End stage renal disease; Z99.2 Dependence on renal dialysis; Z99.81 Dependence on supplemental oxygen; M10.9 Gout, unspecified; J44.9 Chronic obstructive pulmonary disease, unspecified; Z86.73 Personal history of transient ischemic attack (TIA), and cerebral infarction without residual deficits; K21.9 Gastro-esophageal reflux disease without esophagitis; K86.1 Other chronic pancreatitis; Z79.82 Long term (current) use of aspirin; Z87.891 Personal history of nicotine dependence
CPT/HCPCS: 99281; 99284

== ENCOUNTER 2017-06-14 15:56 | Emergency (ER) | payer OTHER, MEDICARE ==
[~2017-06-14] VITALS: Ht 172.7 cm; Wt 76.9 kg
[2017-06-14 16:34] LABS: HEMATOCRIT 37.2 % (38.0-50.0); HEMOGLOBIN 12.5 G/DL (12.5-16.6); MCH 33.4 PG (29.0-34.0); MCHC 33.6 G/DL (30.0-36.0); MCV 99.5 FL (86-99); PLATELET COUNT 162 K/uL (156-360); RBC DIS.WIDTH-CV 15.9 % (11.8-14.6); RBC DIS.WIDTH-SD 57.7 % (39-53); RED BLOOD COUNT 3.74 M/uL (4.00-5.50)
[2017-06-14 16:46] LABS: CHLORIDE 100 mEq/L (99-109); POTASSIUM 4.1 mEq/L (3.7-5.4); SODIUM 138 mEq/L (136-147)
[2017-06-14 16:47] LABS: GLUCOSE 281 mg/dL (70-99)
[2017-06-14 16:51] LABS: GFR ESTIMATE (CALCULATED) 35 mL/min/ (58.99-99999)
[2017-06-14 16:52] LABS: UREA NITROGEN (BUN) 11 mg/dL (9-23)
[2017-06-14] MEDS ORDERED: KEFLEX500 MG PO (17:20)
[2017-06-14 17:36] VITALS: BP 130/76
[2017-06-14 17:56] LABS: C-REACTIVE PROTEIN 5.3 MG/L (0-10)
== END 2017-06-14 17:36 | disposition home or self-care (01) ==
LOC: EME 15:56
PROVIDERS: Emergency Medicine
DX: L03.115 Cellulitis of right lower limb (principal); L03.116 Cellulitis of left lower limb; R73.9 Hyperglycemia, unspecified; N28.9 Disorder of kidney and ureter, unspecified; I11.0 Hypertensive heart disease with heart failure; I50.9 Heart failure, unspecified; J44.9 Chronic obstructive pulmonary disease, unspecified; K21.9 Gastro-esophageal reflux disease without esophagitis; Z86.73 Personal history of transient ischemic attack (TIA), and cerebral infarction without residual deficits; Z99.81 Dependence on supplemental oxygen; Z95.0 Presence of cardiac pacemaker; Z79.82 Long term (current) use of aspirin; Z87.891 Personal history of nicotine dependence
CPT/HCPCS: 73630; 80048; 85027; 86140; 99281; 99284

== ENCOUNTER 2017-08-02 17:05 | Inpatient (IN) | payer OTHER, MEDICARE ==
[~2017-08-02] VITALS: Ht 170.2 cm; Wt 79.3 kg
[~2017-08-02 17:05] MED LIST changes: +CYANOCOBALAM1000 MCG PO; +KEFLEX500 MG PO; -VITAMIN B-125000 MC1 PO
[2017-08-02 18:12] LABS: HEMATOCRIT 37.3 % (38.0-50.0); HEMOGLOBIN 12.4 G/DL (12.5-16.6); MCH 33.2 PG (29.0-34.0); MCHC 33.2 G/DL (30.0-36.0); PLATELET COUNT 142 K/uL (156-360); RBC DIS.WIDTH-CV 13.8 % (11.8-14.6); RBC DIS.WIDTH-SD 51.7 % (39-53); RED BLOOD COUNT 3.73 M/uL (4.00-5.50); WHITE BLOOD COUNT 7.7 K/uL (4.1-10.2)
[2017-08-02 18:21] LABS: CHLORIDE 89 mEq/L (99-109); POTASSIUM 3.7 mEq/L (3.7-5.4); SODIUM 142 mEq/L (136-147)
[2017-08-02 18:22] LABS: BASE EXCESS 19.2 mEq/L (-3 to +3); BICARBONATE 43.9 mEq/L (22-26); CARBOXY HGB 1.6 % (0-5); METHEMOGLOBIN 1.2 % (0-1.5); PCO2 49 mm Hg (35-45); PO2 106 mm Hg (80-100)
[2017-08-02 18:23] LABS: COMMENTS - BLOOD GASES A+C+; DEVICE NC; O2 FLOW 4 L/MIN; SITE LR; pH 7.56 (7.35-7.45)
[2017-08-02 18:23] LABS: GLUCOSE 94 mg/dL (70-99)
[2017-08-02 18:26] LABS: CREATININE 2.4 mg/dL (0.6-1.3); GFR ESTIMATE (CALCULATED) 28 mL/min/ (58.99-99999)
[2017-08-02 18:27] LABS: CARBON DIOXIDE (BICARBONATE) > 40.0 mEq/L (20-31); UREA NITROGEN (BUN) 11 mg/dL (9-23)
[2017-08-02 18:35] LABS: TROP-I INTERPRETATION INDETERMINATE; TROPONIN-I 0.39 ng/mL (0.0-0.30)
[2017-08-02] MEDS ORDERED: SANTYL30 GM TP (22:23)
[2017-08-02] MEDS ORDERED: PROCARDIA XL30 MG PO ×2 (22:23→22:25)
[2017-08-02] MEDS ORDERED: COLCHICINE0.6 M1 PO (22:24)
[2017-08-02] MEDS ORDERED: CILOSTAZOL50 MG PO (22:24)
[2017-08-02] MEDS ORDERED: ELIQUIS2.5 MG PO (22:25)
[2017-08-02] MEDS ORDERED: LYRICA50 MG PO (22:25)
[2017-08-02] MEDS ORDERED: RESTORIL15 MG PO (22:25)
[2017-08-02] MEDS ORDERED: FISH OIL 1,2001 EAC4 PO (22:26)
[2017-08-03] VITALS (8 sets, daily range): BP systolic 94–116; BP diastolic 50–63
[2017-08-03 01:09] LABS: TROP-I INTERPRETATION INDETERMINATE
[2017-08-03 07:12] LABS: HEMATOCRIT 33.1 % (38.0-50.0); HEMOGLOBIN 10.5 G/DL (12.5-16.6); MCH 32.6 PG (29.0-34.0); MCHC 31.7 G/DL (30.0-36.0); MCV 102.8 FL (86-99); PLATELET COUNT 124 K/uL (156-360); RBC DIS.WIDTH-CV 13.8 % (11.8-14.6); RBC DIS.WIDTH-SD 52.8 % (39-53); RED BLOOD COUNT 3.22 M/uL (4.00-5.50); WHITE BLOOD COUNT 6.1 K/uL (4.1-10.2)
[2017-08-03 07:34] LABS: CHLORIDE 89 MEQ/L (99-109); POTASSIUM 3.1 MEQ/L (3.7-5.4); SODIUM 139 MEQ/L (136-147); UREA NITROGEN (BUN) 18 mg/dL (9-23)
[2017-08-03 07:37] LABS: CREATININE 3.2 MG/DL (0.6-1.3); GFR ESTIMATE (CALCULATED) 20 mL/min/ (58.99-99999); GLUCOSE 233 mg/dL (70-99)
[2017-08-03 07:39] LABS: TROP-I INTERPRETATION INDETERMINATE; TROPONIN-I 0.38 ng/mL (0.0-0.30)
[2017-08-03 07:47] LABS: BASOPHIL (%) 0.2 % (0-1); EOSINOPHIL (%) 0 % (0-5); IMMATURE GRANULOCYTE (%) 0.7 % (0.0-0.7); LYMPHOCYTE (%) 8.7 % (15-42); LYMPHOCYTE COUNT 0.5 K/uL (1.0-2.8); MONOCYTE (%) 2.8 % (3-12); MONOCYTE COUNT 0.2 K/uL (0-0.8); NEUTROPHIL (%) 87.6 % (45-76); NEUTROPHIL COUNT 5.3 K/uL (1.8-6.4)
[2017-08-03 07:55] LABS: COMMENTS - BLOOD GASES A+C+; DEVICE NC; O2 FLOW 2 L/MIN; PCO2 58 mm Hg (35-45); PO2 63 mm Hg (80-100); SITE LR; TOTAL RESP RATE 16 resp/min; pH 7.47 (7.35-7.45)
[2017-08-04 04:05] VITALS: BP 116/69
[2017-08-04 08:38] VITALS: BP 107/61
[2017-08-04 11:45] VITALS: BP 103/62
[2017-08-04 15:28] LABS: C DIFF TOXIN NEGATIVE (NEGATIVE)
[2017-08-04 16:10] VITALS: BP 111/58
[2017-08-04 19:33] VITALS: BP 109/79
[2017-08-05 00:10] VITALS: BP 109/59
[2017-08-05 04:20] VITALS: BP 131/64
[2017-08-05 05:18] LABS: HEMATOCRIT 31.4 % (38.0-50.0); MCH 32.1 PG (29.0-34.0); MCHC 31.8 G/DL (30.0-36.0); MCV 100.6 FL (86-99); PLATELET COUNT 118 K/uL (156-360); RBC DIS.WIDTH-CV 13.7 % (11.8-14.6); RBC DIS.WIDTH-SD 50.4 % (39-53); RED BLOOD COUNT 3.12 M/uL (4.00-5.50); WHITE BLOOD COUNT 12.2 K/uL (4.1-10.2)
[2017-08-05 05:52] LABS: CHLORIDE 88 MEQ/L (99-109); CREATININE 6.4 MG/DL (0.6-1.3); GFR ESTIMATE (CALCULATED) 9 mL/min/ (58.99-99999); GLUCOSE 174 mg/dL (70-99); POTASSIUM 4.1 MEQ/L (3.7-5.4); SODIUM 134 MEQ/L (136-147); UREA NITROGEN (BUN) 64 mg/dL (9-23)
[2017-08-05 06:02] LABS: ABS NEUTROPHIL COUNT 11.6; ANISOCYTOSIS 2+; BAND NEUTROPHILS 6.1 % (0-8.0); EOSINOPHIL ABS CT 0; LYMPHOCYTES 4.3 % (15.0-45.0); MACROCYTES 2+; MONOCYTES 0.9 % (0-9.0); OVALOCYTES 1+; PLAT.SUFFICIENCY DECREASED; SEG.NEUTROPHILS 88.7 % (46.0-76.0)
[2017-08-05 07:29] VITALS: BP 111/55
[2017-08-05 11:46] LABS: HEPATITIS B SURFACE ANTIGEN Nonreactive
[2017-08-05 11:54] LABS: HEPATITIS B SURFACE ANTIBODY REACTIVE
[2017-08-05 12:50] VITALS: BP 140/53
[2017-08-05 17:38] VITALS: BP 110/79
[2017-08-05 19:30] VITALS: BP 108/58
[2017-08-06] VITALS (7 sets, daily range): BP systolic 88–127; BP diastolic 51–69
[2017-08-07 04:30] VITALS: BP 135/70
[2017-08-07 07:45] VITALS: BP 129/95
[2017-08-07 11:02] VITALS: BP 116/56
[2017-08-07 12:35] LABS: BASOPHIL (%) 0.3 % (0-1); EOSINOPHIL (%) 0.1 % (0-5); HEMOGLOBIN 9.8 G/DL (12.5-16.6); IMMATURE GRANULOCYTE (%) 2.3 % (0.0-0.7); LYMPHOCYTE (%) 8.1 % (15-42); LYMPHOCYTE COUNT 0.9 K/uL (1.0-2.8); MCH 33.2 PG (29.0-34.0); MCHC 32.7 G/DL (30.0-36.0); MCV 101.7 FL (86-99); MONOCYTE (%) 5.5 % (3-12); MONOCYTE COUNT 0.6 K/uL (0-0.8); NEUTROPHIL (%) 83.7 % (45-76); NEUTROPHIL COUNT 9.5 K/uL (1.8-6.4); NRBC (%) 0.2 /100 WBC (0-0); PLATELET COUNT 111 K/uL (156-360); RBC DIS.WIDTH-SD 52.2 % (39-53); RED BLOOD COUNT 2.95 M/uL (4.00-5.50); WHITE BLOOD COUNT 11.3 K/uL (4.1-10.2)
[2017-08-07 12:49] LABS: ALBUMIN 2.9 G/DL (3.2-4.8); CHLORIDE 95 MEQ/L (99-109); POTASSIUM 4.6 MEQ/L (3.7-5.4); SODIUM 132 MEQ/L (136-147)
[2017-08-07 12:55] LABS: CREATININE 6.3 MG/DL (0.6-1.3); GFR ESTIMATE (CALCULATED) 9 mL/min/ (58.99-99999); PHOSPHORUS 5.3 mg/dL (2.5-4.9); UREA NITROGEN (BUN) 66 mg/dL (9-23)
[2017-08-07 12:57] LABS: GLUCOSE 266 mg/dL (70-99)
[2017-08-07] MEDS ORDERED: AZITHROMYCIN500 M1 PO (13:23)
[2017-08-07] MEDS ORDERED: BYSTOLIC5 MG PO (13:23)
[2017-08-07] MEDS ORDERED: PREDNISONE5 MG PO (14:37)
[2017-08-07] MEDS ORDERED: AUGMENTIN875 MG PO (14:37)
[2017-08-07] MEDS ORDERED: RESTORIL15 MG PO (14:38)
[2017-08-07] MEDS ORDERED: TRAMADOL HCL50 MG PO (14:45)
[2017-08-07 17:01] VITALS: BP 122/58
== END 2017-08-07 18:12 | DRG 981 ==
LOC: EME 17:05 → 4EAST 22:27 → EDOF 22:27 → ENRESERV 22:29 → 4EAST 08-03 00:54
PROVIDERS: Emergency Medicine; Hospitalist; Internal Medicine; Internal Medicine Nephrology
PROC: 5A1D70Z Performance of Urinary Filtration, Intermittent, Less than 6 Hours Per Day (ICD-10-PCS; principal; 2017-08-05)
PROC: 05753DZ Dilation of Right Subclavian Vein with Intraluminal Device, Percutaneous Approach (ICD-10-PCS; 2017-08-06)
DX: J44.1 Chronic obstructive pulmonary disease with (acute) exacerbation (principal); J96.21 Acute and chronic respiratory failure with hypoxia; N18.6 End stage renal disease; I13.2 Hypertensive heart and chronic kidney disease with heart failure and with stage 5 chronic kidney disease, or end stage renal disease; I50.32 Chronic diastolic (congestive) heart failure; J98.11 Atelectasis; E87.4 Mixed disorder of acid-base balance; J96.22 Acute and chronic respiratory failure with hypercapnia; J90 Pleural effusion, not elsewhere classified; I42.8 Other cardiomyopathies; L97.429 Non-pressure chronic ulcer of left heel and midfoot with unspecified severity; T82.510A Breakdown (mechanical) of surgically created arteriovenous fistula, initial encounter; Y83.2 Surgical operation with anastomosis, bypass or graft as the cause of abnormal reaction of the patient, or of later complication, without mention of misadventure at the time of the procedure; J44.0 Chronic obstructive pulmonary disease with (acute) lower respiratory infection; M10.9 Gout, unspecified; K21.9 Gastro-esophageal reflux disease without esophagitis; J20.9 Acute bronchitis, unspecified; I48.0 Paroxysmal atrial fibrillation; I27.20 Pulmonary hypertension, unspecified; G47.33 Obstructive sleep apnea (adult) (pediatric); E87.6 Hypokalemia; E78.5 Hyperlipidemia, unspecified; I34.0 Nonrheumatic mitral (valve) insufficiency; I36.1 Nonrheumatic tricuspid (valve) insufficiency; E03.9 Hypothyroidism, unspecified; E11.22 Type 2 diabetes mellitus with diabetic chronic kidney disease; E11.51 Type 2 diabetes mellitus with diabetic peripheral angiopathy without gangrene; E11.65 Type 2 diabetes mellitus with hyperglycemia; E11.621 Type 2 diabetes mellitus with foot ulcer; I70.8 Atherosclerosis of other arteries; L97.519 Non-pressure chronic ulcer of other part of right foot with unspecified severity; J84.10 Pulmonary fibrosis, unspecified; Z85.09 Personal history of malignant neoplasm of other digestive organs; Z87.01 Personal history of pneumonia (recurrent); Z87.891 Personal history of nicotine dependence; Z90.411 Acquired partial absence of pancreas; Z91.19 Patient's noncompliance with other medical treatment and regimen; Z95.810 Presence of automatic (implantable) cardiac defibrillator; Z99.2 Dependence on renal dialysis; Z99.81 Dependence on supplemental oxygen; Z79.02 Long term (current) use of antithrombotics/antiplatelets; Z82.3 Family history of stroke; Z90.49 Acquired absence of other specified parts of digestive tract; Z79.4 Long term (current) use of insulin; Z79.51 Long term (current) use of inhaled steroids; Z79.01 Long term (current) use of anticoagulants; Z80.0 Family history of malignant neoplasm of digestive organs; Z82.49 Family history of ischemic heart disease and other diseases of the circulatory system; Z82.5 Family history of asthma and other chronic lower respiratory diseases; Z83.3 Family history of diabetes mellitus
CPT/HCPCS: 36600; 71046; 71250; 80048; 80069; 81003; 82803; 82948; 83880; 84484; 85025; 85027; 86706; 87040; 87070; 87077; 87106; 87186; 87205; 87340; 87449; 87493; 87641; 93005; 94640; 94640 76; 94799; 97530 GP; 99202; 99281; 99285; C1725; C1769; C1874; C1894; J0295; J0456; J1644; J1815; J2250; J2543; J2930; J3010; J3370; J7050; J7512

== ENCOUNTER → 2017-08-22 | Outpatient (CLI) | payer OTHER, MEDICARE ==
[~2017-08-22] MED LIST changes: +AUGMENTIN875 MG PO; +AZITHROMYCIN500 M1 PO; +BYSTOLIC5 MG PO; +CILOSTAZOL50 MG PO; +COLCHICINE0.6 M1 PO; +ELIQUIS2.5 MG PO; +FISH OIL 1,2001 EAC4 PO; +LYRICA50 MG PO; +PROCARDIA XL30 MG PO; +RESTORIL15 MG PO; +SANTYL30 GM TP
== END | disposition home or self-care (01) ==
LOC: RAD 08:58
DX: R13.12 Dysphagia, oropharyngeal phase (principal); Z87.01 Personal history of pneumonia (recurrent); Z86.79 Personal history of other diseases of the circulatory system; Z87.19 Personal history of other diseases of the digestive system
CPT/HCPCS: 74230; 92611 GN; G8996 GN CK; G8997 GN CK; G8998 GN CK

== ENCOUNTER 2017-09-30 07:48 | Day surgery (SDC) | payer OTHER, MEDICARE ==
[~2017-09-30 07:48] MED LIST changes: +LOMOTIL TABLET1 EACH PO; +MIDODRINE HCL5 MG PO
== END 2017-09-30 09:50 | disposition home or self-care (01) ==
LOC: CATH 07:48
PROVIDERS: Surgery
DX: T82.858A Stenosis of other vascular prosthetic devices, implants and grafts, initial encounter (principal); T82.838A Hemorrhage due to vascular prosthetic devices, implants and grafts, initial encounter; Y83.2 Surgical operation with anastomosis, bypass or graft as the cause of abnormal reaction of the patient, or of later complication, without mention of misadventure at the time of the procedure; E11.22 Type 2 diabetes mellitus with diabetic chronic kidney disease; N18.6 End stage renal disease; Z99.2 Dependence on renal dialysis; Z79.4 Long term (current) use of insulin; Z79.82 Long term (current) use of aspirin; I73.01 Raynaud's syndrome with gangrene; I70.235 Atherosclerosis of native arteries of right leg with ulceration of other part of foot; I48.91 Unspecified atrial fibrillation; J44.9 Chronic obstructive pulmonary disease, unspecified; Z85.07 Personal history of malignant neoplasm of pancreas; Z87.891 Personal history of nicotine dependence
CPT/HCPCS: 82948; 87641; C1725; C1769; C1894; J1644; J2250; J3010